=== PATIENT | male | born 1930 | race Hispanic/Latino ===

== ENCOUNTER 2016-11-01 15:25 | Emergency (ER) | payer MEDICARE, OTHER ==
[2016-11-01 17:06] LABS: Basophils % (Auto) 0.5 % (0.0-1.8); Eosinophils % (Auto) 2.1 % (0.0-4.3); Hematocrit 37.7 % (35.5-45.6); Hemoglobin 12.7 gm/dl (11.8-15.2); Mean Corpuscular HGB Conc 34 % (32-34); Mean Corpuscular Hemoglobin 31 pg (28-32); Mean Corpuscular Volume 92 fl (84-94); Platelet Count 193 K/mm3 (140-440); Red Blood Count 4.09 M/mm3 (3.65-5.03); Red Cell Distribution Width 13.7 % (13.2-15.2); White Blood Count 9.1 K/mm3 (4.5-11.0)
[2016-11-01 17:25] LABS: Anion Gap 19 mmol/L; BUN/Creatinine Ratio 23.33; Blood Urea Nitrogen 28 mg/dL (9-20); Calcium 9.3 mg/dL (8.4-10.2); Carbon Dioxide 27 mmol/L (22-30); Chloride 97.6 mmol/L (98-107); Glucose 122 mg/dL (75-100); Potassium 4.2 mmol/L (3.6-5.0); Sodium 139 mmol/L (137-145)
--- NOTE | 2016-11-01 18:58 | Emergency Department Report ---
ED Dizziness HPI - General Chief Complaint: Syncope Stated Complaint: SYNCOPE Time Seen by Provider: 11/01/16 16:16 Source: patient, EMS Mode of arrival: Stretcher Limitations: No Limitations - History of Present Illness Initial Comments: 86-year-old male presents to the emergency department via EMS after a near syncopal episode. Patient states he was at [facility] when he began feeling lightheaded. Patient states he was able to sit down. He did not fall. He also denies losing consciousness. He denies palpitations or chest pain prior to this incident. At this time, the patient has no complaints. Patient states he would like to go home. Complaint: near syncope -: Sudden, This afternoon Timing: sudden onset Description: lightheadedness, near-syncope History of Same: Yes History of Trauma: No Severity: moderate Improves With: rest Worsens With: nothing Associated Symptoms: denies other symptoms - Related Data Allergies Allergy/AdvReac Type Severity Reaction Status Date / Time No Known Allergies Allergy Unverified 07/14/16 10:38 ED Review of Systems ROS: Stated complaint: SYNCOPE Other details as noted in HPI Comment: All other systems reviewed and negative Cardiovascular: as per HPI, syncope (near syncope, no loss of consciousness) ED Past Medical Hx - Past Medical History Previous Medical History?: Yes Hx Hypertension: Yes Hx CVA: Yes - Surgical History Past Surgical History?: Yes Hx Coronary Stent: Yes (6) - Family History Family history: no significant - Social History Smoking Status: Former Smoker Substance Use Type: None ED Physical Exam - General Limitations: No Limitations General appearance: alert, in no apparent distress - Head Head exam: Present: atraumatic, normocephalic - Eye Eye exam: Present: normal appearance, PERRL, EOMI - ENT ENT exam: Present: normal exam, normal orophraynx, mucous membranes moist - Neck Neck exam: Present: normal inspection, full ROM. Absent: tenderness - Respiratory Respiratory exam: Present: normal lung sounds bilaterally. Absent: respiratory distress - Cardiovascular Cardiovascular Exam: Present: regular rate, normal rhythm, normal heart sounds - GI/Abdominal GI/Abdominal exam: Present: soft, normal bowel sounds. Absent: distended, tenderness - Extremities Exam Extremities exam: Present: normal inspection, full ROM. Absent: tenderness - Back Exam Back exam: Present: normal inspection, full ROM. Absent: tenderness - Neurological Exam Neurological exam: Present: alert, oriented X3. Absent: motor sensory deficit - Skin Skin exam: Present: warm, dry, intact ED Course Vital Signs 11/01/16 11/01/16 11/01/16 15:45 15:48 15:50 Temperature 98.1 F Pulse Rate 57 L 75 Respiratory 18 15 Rate Blood Pressure 146/67 O2 Sat by Pulse 99 99 98 Oximetry 11/01/16 11/01/16 11/01/16 16:00 16:10 16:20 Temperature Pulse Rate 50 L 55 L 55 L Respiratory 8 L 15 10 L Rate Blood Pressure 146/67 131/60 132/61 O2 Sat by Pulse 97 99 Oximetry 11/01/16 11/01/16 11/01/16 16:30 16:40 16:50 Temperature Pulse Rate 55 L 66 60 Respiratory 13 10 L 13 Rate Blood Pressure 132/61 137/67 156/73 O2 Sat by Pulse 98 98 99 Oximetry 11/01/16 11/01/16 11/01/16 17:00 17:10 17:20 Temperature Pulse Rate 69 65 66 Respiratory 14 9 L 11 L Rate Blood Pressure 156/73 159/70 153/65 O2 Sat by Pulse 97 97 97 Oximetry 11/01/16 11/01/16 11/01/16 17:30 17:42 17:48 Temperature Pulse Rate 64 71 Respiratory 18 20 14 Rate Blood Pressure 153/65 156/73 O2 Sat by Pulse 94 99 98 Oximetry 11/01/16 11/01/16 11/01/16 17:50 18:00 18:10 Temperature Pulse Rate 68 65 63 Respiratory 12 16 11 L Rate Blood Pressure 156/73 139/61 139/61 O2 Sat by Pulse 97 97 97 Oximetry 11/01/16 18:20 Temperature Pulse Rate 76 Respiratory 15 Rate Blood Pressure 140/59 O2 Sat by Pulse 96 Oximetry ED Medical Decision Making - Lab Data Result diagrams: 11/01/16 16:46 11/01/16 16:46 - EKG Data -: EKG Interpreted by Me EKG shows normal: sinus rhythm, axis, intervals, QRS complexes, ST-T waves Rate: normal - EKG Data When compared to previous EKG there are: previous EKG unavailable Interpretation: normal EKG - Medical Decision Making Laboratory results reviewed and discussed with the patient and family. Patient is adamant about going home at this time. Risks of leaving without further cardiac evaluation were discussed with the patient. 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 Patient will be discharged home at this time. - Differential Diagnosis near syncope, arrhythmia, dehydration Critical care attestation.: If time is entered above; I have spent that time in minutes in the direct care of this critically ill patient, excluding procedure time. ED Disposition Clinical Impression: Near syncope Disposition: DISCHARGED TO HOME OR SELFCARE Is pt being admited?: No Condition: Stable Instructions: Near Syncope (ED) Referrals: PRIMARY CARE, [Primary Care Provider] - 3-5 Days Time of Disposition: 18:58
[2016-11-01 20:02] VITALS: BP 152/64
== END 2016-11-01 19:10 | disposition home or self-care (01) ==
LOC: ED 15:25
DX: R55 Syncope and collapse (principal); I10 Essential (primary) hypertension; Z86.73 Personal history of transient ischemic attack (TIA), and cerebral infarction without residual deficits; Z87.891 Personal history of nicotine dependence; Z95.818 Presence of other cardiac implants and grafts
CPT/HCPCS: 36415; 80048; 84484; 85025; 99283

== ENCOUNTER 2017-03-18 21:15 | Emergency (ER) | payer MEDICARE, OTHER ==
--- NOTE | 2017-03-18 22:56 | Emergency Department Report ---
ED General Adult HPI - General Chief complaint: Abdominal Pain Stated complaint: ABDOMINAL PAIN Time Seen by Provider: 03/18/17 22:30 Source: patient, family, EMS (ems notes not available at time of chart dictation), RN notes reviewed, old records reviewed Mode of arrival: Ambulatory Limitations: No Limitations - History of Present Illness Initial comments: This is an 87-year-old male. He was previously unknown to me. Past medical history includes stroke, hypertension, heart disease with stent, reports a distant history of appendectomy. Also reports a past medical history of kidney stones. The patient presents to the ER with resolved right lower quadrant and right flank pain. He thinks that he had a kidney stone. He denies headache, neck pain, chest pain, shortness of breath, testicular pain, irritative and obstructive urinary symptoms. He has no pain at this time. He declines pain medication. He declines nausea medication. -: Gradual Location: abdomen Radiation: non-radiation Severity scale (0 -10): 0 Quality: aching Consistency: now resolved Improves with: none Worsens with: none Associated Symptoms: denies other symptoms - Related Data Previous Rx's Medication Instructions Recorded Last Taken Type Dicyclomine [Bentyl] 10 mg PO QID PRN #20 capsule 03/19/17 Unknown Rx Ondansetron [Zofran Odt] 4 mg PO QID PRN #20 tab.rapdis 03/19/17 Unknown Rx Allergies Allergy/AdvReac Type Severity Reaction Status Date / Time No Known Allergies Allergy Unverified 07/14/16 10:38 ED Review of Systems ROS: Stated complaint: ABDOMINAL PAIN Other details as noted in HPI Constitutional: denies: fever, malaise Eyes: denies: vision change ENT: denies: throat pain, epistaxis Respiratory: denies: cough Cardiovascular: denies: chest pain Gastrointestinal: abdominal pain Genitourinary: denies: urgency, dysuria, testicular pain Musculoskeletal: denies: back pain Skin: denies: lesions Neurological: denies: headache ED Past Medical Hx - Past Medical History Previous Medical History?: Yes Hx Hypertension: Yes Hx CVA: Yes - Surgical History Past Surgical History?: Yes Hx Coronary Stent: Yes (6) - Social History Smoking Status: Former Smoker Substance Use Type: None - Medications Home Medications: Home Medications Medication Instructions Recorded Confirmed Last Taken Type Dicyclomine [Bentyl] 10 mg PO QID PRN #20 capsule 03/19/17 Unknown Rx Ondansetron [Zofran Odt] 4 mg PO QID PRN #20 tab.rapdis 03/19/17 Unknown Rx ED Physical Exam - General Limitations: No Limitations General appearance: alert, in no apparent distress - Head Head exam: Present: atraumatic, normocephalic - Eye Eye exam: Present: normal appearance, EOMI - ENT ENT exam: Present: normal exam, normal orophraynx, mucous membranes moist, normal external ear exam - Neck Neck exam: Present: normal inspection, full ROM. Absent: tenderness, meningismus - Respiratory Respiratory exam: Present: normal lung sounds bilaterally. Absent: respiratory distress, wheezes, rales, rhonchi, stridor, chest wall tenderness - Cardiovascular Cardiovascular Exam: Present: regular rate, normal rhythm, normal heart sounds. Absent: bradycardia, tachycardia, irregular rhythm, systolic murmur, diastolic murmur, rubs, gallop - GI/Abdominal GI/Abdominal exam: Present: soft, normal bowel sounds. Absent: distended, tenderness, guarding, rebound, rigid, pulsatile mass - Rectal Rectal exam: Present: deferred - Extremities Exam Extremities exam: Present: normal inspection, full ROM, normal capillary refill. Absent: joint swelling, calf tenderness - Back Exam Back exam: Present: normal inspection, full ROM. Absent: tenderness, CVA tenderness (R), CVA tenderness (L), muscle spasm, paraspinal tenderness, vertebral tenderness - Neurological Exam Neurological exam: Present: alert, oriented X3, other (Extraocular movements intact. Tongue midline. No facial droop. Facial sensation intact to light touch in the V1, V2, V3 distribution bilaterally. 5 and 5 strength in 4 extremities.. Sensation is intact to light touch in 4 extremities.). Absent: motor sensory deficit - Psychiatric Psychiatric exam: Present: normal affect, normal mood - Skin Skin exam: Present: warm, dry, intact, normal color. Absent: rash ED Course Vital Signs 03/18/17 03/18/17 03/18/17 21:34 21:48 21:51 Temperature 98.3 F Pulse Rate 81 82 76 Respiratory 18 12 14 Rate Blood Pressure 160/92 Blood Pressure 138/83 [Right] O2 Sat by Pulse 99 98 99 Oximetry 03/18/17 03/18/17 03/18/17 22:01 22:11 22:21 Temperature Pulse Rate 77 40 L 41 L Respiratory 13 17 13 Rate Blood Pressure 155/85 155/85 155/85 Blood Pressure [Right] O2 Sat by Pulse 98 97 98 Oximetry 03/18/17 03/18/17 03/18/17 22:31 22:41 22:51 Temperature Pulse Rate 79 76 81 Respiratory 14 10 L 13 Rate Blood Pressure 166/90 166/90 166/90 Blood Pressure [Right] O2 Sat by Pulse 99 98 98 Oximetry 03/18/17 03/18/17 03/18/17 23:01 23:11 23:21 Temperature Pulse Rate 79 86 Respiratory 18 11 L 16 Rate Blood Pressure 166/90 166/90 166/90 Blood Pressure [Right] O2 Sat by Pulse 95 97 97 Oximetry 03/18/17 23:39 Temperature Pulse Rate Respiratory 18 Rate Blood Pressure Blood Pressure [Right] O2 Sat by Pulse 98 Oximetry - Reevaluation(s) Reevaluation #1: 03/19/17 00:11 Differential diagnosis: Constipation, renal colic, urinary tract infection, colitis, diverticulitis, perforated viscus, AAA Assessment and plan: 87-year-old male with resolved abdominal pain. He is afebrile, with reassuring vital signs, and clinically appears well. He declines interventions at this time. Laboratory studies, CT scan of the abdomen and pelvis, urinalysis pending. Reevaluation #2: 03/19/17 00:44 Patient is tolerating liquid feeds. No AAA is identified. No obstruction is identified. No renal calculus is identified. Hydroureter on the right side is identified. Patient is suitable to follow up with outpatient primary care doctor. Return precautions are reviewed. Reevaluation #3: 03/19/17 00:49 The patient is going to follow up with his primary care doctor next week. He has been given copies of his laboratory studies and CT scan report to show his primary care doctor. ED Medical Decision Making - Lab Data Result diagrams: 03/18/17 23:07 03/18/17 23:07 Vital Signs 03/18/17 03/18/17 03/18/17 21:34 21:48 21:51 Temperature 98.3 F Pulse Rate 81 82 76 Respiratory 18 12 14 Rate Blood Pressure 160/92 Blood Pressure 138/83 [Right] O2 Sat by Pulse 99 98 99 Oximetry 03/18/17 03/18/17 03/18/17 22:01 22:11 22:21 Temperature Pulse Rate 77 40 L 41 L Respiratory 13 17 13 Rate Blood Pressure 155/85 155/85 155/85 Blood Pressure [Right] O2 Sat by Pulse 98 97 98 Oximetry 03/18/17 03/18/17 03/18/17 22:31 22:41 22:51 Temperature Pulse Rate 79 76 81 Respiratory 14 10 L 13 Rate Blood Pressure 166/90 166/90 166/90 Blood Pressure [Right] O2 Sat by Pulse 99 98 98 Oximetry 03/18/17 03/18/17 03/18/17 23:01 23:11 23:21 Temperature Pulse Rate 79 86 Respiratory 18 11 L 16 Rate Blood Pressure 166/90 166/90 166/90 Blood Pressure [Right] O2 Sat by Pulse 95 97 97 Oximetry 03/18/17 23:39 Temperature Pulse Rate Respiratory 18 Rate Blood Pressure Blood Pressure [Right] O2 Sat by Pulse 98 Oximetry Labs 03/18/17 03/18/17 23:07 23:07 WBC 8.9 RBC 4.11 Hgb 13.1 Hct 37.9 MCV 92 MCH 32 MCHC 35 H RDW 13.6 Plt Count 158 Sodium 128 L Potassium 4.2 Chloride 87.4 L Carbon Dioxide 26 Anion Gap 19 BUN 18 Creatinine 0.9 Estimated GFR > 60 BUN/Creatinine Ratio 20.00 Glucose 120 H Calcium 9.2 - Radiology Data Radiology results: report reviewed Critical care attestation.: If time is entered above; I have spent that time in minutes in the direct care of this critically ill patient, excluding procedure time. ED Disposition Clinical Impression: Right sided abdominal pain Disposition: DC-01 TO HOME OR SELFCARE Is pt being admited?: No Does the pt Need Aspirin: No Condition: Stable Instructions: Abdominal Pain (ED) Additional Instructions: Take the pain medication, nausea medication as directed. Laboratory studies demonstrated decreased sodium level, it should be followed up by a primary care doctor within the next [address] scan demonstrated a slightly enlarged ureter, especially follow-up by her primary care doctor or urology specialist in the next month. CT scan also demonstrated a number of incidental findings, which should be followed up by your primary care doctor. Have your primary care doctor contact the medical records department to obtain the CT scan results. Return to the ER right away with new pain, worsened pain, migration of pain, fevers, chills, confusion, intractable nausea or vomiting, inability to tolerate liquid feeds. Dr. Mueller is a local urology specialist. Prescriptions: Dicyclomine [Bentyl] 10 mg PO QID PRN #20 capsule PRN Reason: Pain Ondansetron [Zofran Odt] 4 mg PO QID PRN #20 tab.rapdis PRN Reason: Nausea Referrals: PRIMARY CARE, [Primary Care Provider] - 3-5 Days SILVINA MUELLER MD [Staff Physician] - 3-5 Days
[2017-03-18 23:40] LABS: Anion Gap 19 mmol/L; Blood Urea Nitrogen 18 mg/dL (9-20); Calcium 9.2 mg/dL (8.4-10.2); Carbon Dioxide 26 mmol/L (22-30); Chloride 87.4 mmol/L (98-107); Glucose 120 mg/dL (75-100); Potassium 4.2 mmol/L (3.6-5.0); Sodium 128 mmol/L (137-145)
[2017-03-18 23:44] LABS: Hematocrit 37.9 % (35.5-45.6); Hemoglobin 13.1 gm/dl (11.8-15.2); Mean Corpuscular HGB Conc 35 % (32-34); Mean Corpuscular Hemoglobin 32 pg (28-32); Mean Corpuscular Volume 92 fl (84-94); Platelet Count 158 K/mm3 (140-440); Red Blood Count 4.11 M/mm3 (3.65-5.03); Red Cell Distribution Width 13.6 % (13.2-15.2); White Blood Count 8.9 K/mm3 (4.5-11.0)
[2017-03-19 00:24] LABS: Bilirubin,Urine NEG (Negative); Blood,Urine NEG (Negative); Ketones,Urine TR mg/dL (Negative); Leukocyte Esterase,Urine NEG (Negative); Nitrite,Urine NEG (Negative); Protein,Urine <15 mg/dL mg/dL (Negative); RBC,Urine < 1.0 /HPF (0.0-6.0); Urobilinogen,Urine < 2.0 mg/dL (<2.0); WBC,Urine < 1.0 /HPF (0.0-6.0)
--- NOTE | 2017-03-19 00:42 | Cat Scan Report ---
FINAL REPORT PROCEDURE: CT ABDOMEN PELVIS WO CON TECHNIQUE: Computerized axial tomography of the abdomen and pelvis was performed without intravenous contrast. This study is performed without intravascular contrast material and its sensitivity for abdominal and pelvic pathology, including neoplasms, inflammation, abscess, free fluid, thrombosis, arterial dissection and infarction, is reduced compared with a contrast enhanced study. HISTORY: abd pain COMPARISON: No prior studies are available for comparison. 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 Liver: Normal size and attenuation. Spleen: Normal size and attenuation. Gallbladder and biliary system: Normal. Pancreas: Normal. Adrenals: Normal. 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 There is moderate hydronephrosis and hydroureter on the right. There are no kidney or ureteral stones. There are intrarenal vascular calcifications.. GI tract: There is no bowel obstruction, colitis or enteritis. There is a large amount of stool in the colon. The stomach is distended.. Lymph nodes and mesentery: Normal. Vasculature: There is calcified plaque in the abdominal aorta and branches. There is no aneurysm.. Bladder: Bladder is distended.. Reproductive organs: Prostate gland is enlarged.. Peritoneum: There is no ascites, free air, abscess or adenopathy.. Musculoskeletal structures: No significant abnormality. Other: None. 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 There is moderate hydronephrosis and hydroureter on the right. There are no kidney or ureteral stones. There are intrarenal vascular calcifications.. There is no bowel obstruction, colitis or enteritis. There is a large amount of stool in the colon. The stomach is distended.. Prostate gland is enlarged.. There is no ascites, free air, abscess or adenopathy.. .
[2017-03-19 02:01] VITALS: BP 169/75
== END 2017-03-19 01:59 | disposition home or self-care (01) ==
LOC: ED 21:15
DX: R10.31 Right lower quadrant pain (principal); I10 Essential (primary) hypertension; Z86.73 Personal history of transient ischemic attack (TIA), and cerebral infarction without residual deficits; Z87.891 Personal history of nicotine dependence; Z95.818 Presence of other cardiac implants and grafts
CPT/HCPCS: 36415; 74176; 80048; 81001; 85027; 87086

== ENCOUNTER 2017-04-12 10:00 | Outpatient (CLI) | payer MEDICARE, OTHER ==
--- NOTE | 2017-04-12 12:08 | Ultrasound Report ---
ULTRASOUND RENAL RIGHT HISTORY: Hydronephrosis FINDINGS: History of left nephrectomy is given. Transabdominal ultrasound imaging of the right kidney was performed which measures 15 x 8 x 7 cm. No evidence for hydronephrosis on ultrasound. No cystic disease, mass or shadowing calculus. Renal vascular calcifications are noted. The echotexture of the right kidney is within normal limits. The bladder is empty. IMPRESSION: Essentially unremarkable sonogram of the right kidney. No evidence for hydronephrosis.
== END 2017-04-12 10:01 | disposition home or self-care (01) ==
LOC: US 10:00
PROVIDERS: ATTEND Urology
DX: N28.89 Other specified disorders of kidney and ureter (principal); I10 Essential (primary) hypertension; Z90.5 Acquired absence of kidney; Z87.891 Personal history of nicotine dependence
CPT/HCPCS: 76775

== ENCOUNTER 2017-09-25 10:02 | Outpatient (CLI) | payer MEDICARE, OTHER ==
--- NOTE | 2017-09-25 11:47 | Cat Scan Report ---
CT ABDOMEN PELVIS WITHOUT CONTRAST: HISTORY: Hydronephrosis. COMPARISON: 03/19/17. TECHNIQUE: Helical CT in 1.25mm intervals without IV contrast. Sagittal and coronal reconstructions. FINDINGS: Lung bases: Adequately aerated. Heart size is borderline. Liver: Normal. Biliary system: Normal. Pancreas: Normal. Spleen: Normal. Kidneys/ureters/bladder: The left kidney is severely atrophic measuring 2-3 cm in length. The right kidney is normal size and position. Right hydronephrosis has resolved since the previous exam renal vascular calcifications are identified. There also appear to be a few punctate calyceal stones in the superior pole of the right kidney. The right ureter is normal course and caliber. The bladder is grossly normal. The prostate gland is moderately enlarged measuring 5.6 cm in diameter. Adrenal glands: Normal. Aorta: Diffuse calcifications. No aneurysm or signs of dissection. Intestines: There is moderate fecal retention. No evidence for bowel obstruction or focal inflammation. Appendix: Not confidently identified, correlate with surgical history. Pelvic viscera: Normal. Ascites: None. Adenopathy: None. Musculoskeletal: Mild osteopenia with diffuse degenerative changes. No acute fracture is appreciated. Chronic right L2 and L3 comment first process fractures are noted. IMPRESSION: No evidence for hydronephrosis. There are few punctate calyceal stones in the superior right kidney. The left kidney is severely atrophic. Enlarged prostate gland. 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 Fecal retention. Osteopenia and degenerative changes.
== END 2017-09-25 10:03 | disposition home or self-care (01) ==
LOC: CT 10:02
PROVIDERS: ATTEND Urology
DX: N20.0 Calculus of kidney (principal); N40.0 Benign prostatic hyperplasia without lower urinary tract symptoms; N26.1 Atrophy of kidney (terminal); S32.039A Unspecified fracture of third lumbar vertebra, initial encounter for closed fracture; S32.029A Unspecified fracture of second lumbar vertebra, initial encounter for closed fracture; I70.0 Atherosclerosis of aorta; K59.00 Constipation, unspecified; M85.88 Other specified disorders of bone density and structure, other site; M47.899 Other spondylosis, site unspecified; X58.XXXA Exposure to other specified factors, initial encounter; Y93.89 Activity, other specified; Y92.89 Other specified places as the place of occurrence of the external cause; Y99.8 Other external cause status
CPT/HCPCS: 74176

== ENCOUNTER 2018-10-29 10:46 | Outpatient (CLI) | payer MEDICARE, OTHER ==
--- NOTE | 2018-10-29 13:29 | XRay Report ---
LEFT HIP, 2 views: History: Pain The bony architecture is intact without evidence of fracture or dislocation. Minimal osteoarthritic changes are identified. No significant soft tissue abnormality is seen. IMPRESSION: Minimal osteoarthritis.
--- NOTE | 2018-10-29 17:19 | XRay Report ---
FINAL REPORT EXAM: XR SPINE LUMBOSACRAL 4+V HISTORY: PAIN in the low back TECHNIQUE: AP, lateral, bilateral oblique, and coned-down views of the lumbar spine PRIORS: CT a/P 03/18/2017 FINDINGS: The vertebral body heights and disc spaces are well maintained. Large osteophytes anteriorly in the l umbar spine are noted. Facet joint degenerative changes at L4 through S1 are noted. The alignment is normal. No evidence for spondylolysis or spondylolisthesis is seen. Pedicles are intact bilaterally a t all levels. The paraspinal soft tissues demonstrate calcification of aorta. IMPRESSION: No acute abnormality of the lumbar spine. No significant change. Degenerative changes as noted.
== END 2018-10-29 10:47 | disposition home or self-care (01) ==
LOC: XRAY 10:46
PROVIDERS: ATTEND Internal Medicine
DX: M47.817 Spondylosis without myelopathy or radiculopathy, lumbosacral region (principal); M16.12 Unilateral primary osteoarthritis, left hip; I10 Essential (primary) hypertension
CPT/HCPCS: 72110

== ENCOUNTER 2019-03-31 15:28 | Inpatient (IN) | payer MEDICARE, OTHER ==
--- NOTE | 2019-03-31 15:38 | Emergency Department Report ---
Blank Doc - Documentation Documentation: This is a 89-year-old male that presents with low H/H and was sent by PCP. This initial assessment/diagnostic orders/clinical plan/treatment(s) is/are subject to change based on patient's health status, clinical progression and re- assessment by fellow clinical providers in the ED. Further treatment and workup at subsequent clinical providers discretion. Patient/guardians urged not to elope from the ED as their condition may be serious if not clinically assessed and managed. Initial orders include: 1- Patient sent to MAIN for further evaluation and treatment 2- labs
[2019-03-31 16:02] LABS: Basophils % (Auto) 0.8 % (0.0-1.8); Eosinophils # (Auto) 0.1 K/mm3 (0.0-0.4); Eosinophils % (Auto) 2.7 % (0.0-4.3); Hematocrit 21.2 % (35.5-45.6); Hemoglobin 6.8 gm/dl (11.8-15.2); Lymphocytes # (Auto) 1.2 K/mm3 (1.2-5.4); Lymphocytes % (Auto) 26.5 % (13.4-35.0); Mean Corpuscular HGB Conc 32 % (32-34); Mean Corpuscular Volume 86 fl (84-94); Monocytes # (Auto) 0.5 K/mm3 (0.0-0.8); Monocytes % (Auto) 11.6 % (0.0-7.3); Platelet Count 236 K/mm3 (140-440); Red Blood Count 2.47 M/mm3 (3.65-5.03)
[2019-03-31 16:03] LABS: Red Cell Distribution Width 20.6 % (13.2-15.2)
[2019-03-31 16:11] LABS: INR 2.33 (0.87-1.13)
[2019-03-31 16:12] LABS: Partial Thromboplastin Time 45.6 Sec. (24.2-36.6)
[2019-03-31 16:21] LABS: BUN/Creatinine Ratio 13; Blood Urea Nitrogen 14 mg/dL (9-20); Calcium 8.9 mg/dL (8.4-10.2); Hemolysis Index 3
[2019-03-31] MEDS ORDERED: NACL 0.9% 500 ML 500 ML IV ONE ×2 (16:54→18:00)
--- NOTE | 2019-03-31 17:00 | Emergency Department Report ---
ED Recheck HPI - General Chief Complaint: Recheck/Abnormal Lab/Rx Stated Complaint: LOW HEMOGLOBIN Time Seen by Provider: 03/31/19 16:50 Source: patient Mode of arrival: Ambulatory Limitations: No Limitations - History of Present Illness Initial Comments: Patient is an 89-year-old male presents emergency room with complaints of low hemoglobin. Patient states his primary care, Dr. Us sent him here for evaluation. Patient denies pain. Patient denies any symptoms except for melena. Patient states 2 days ago his stool turned black. Patient denies abdominal pain. Patient denies fever. He denies bright red blood per rectum. Patient states she is on blood thinner. Patient past medical history review, patient has a history of CAD with 6 cardiac stents, A. fib, hyperlipidemia. MD Complaint: abnormal lab -: Sudden Returns Today for: CBOAL Symptoms Since Prior Visit: no new symptoms Context: called for abnorm lab res Associated Symptoms: none - Related Data Previous Rx's Medication Instructions Recorded Last Taken Type Dicyclomine [Bentyl] 10 mg PO QID PRN #20 capsule 03/19/17 Unknown Rx Ondansetron [Zofran Odt] 4 mg PO QID PRN #20 tab.rapdis 03/19/17 Unknown Rx Allergies Allergy/AdvReac Type Severity Reaction Status Date / Time No Known Allergies Allergy Unverified 07/14/16 10:38 ED Review of Systems ROS: Stated complaint: LOW HEMOGLOBIN Other details as noted in HPI Constitutional: denies: chills, fever Eyes: denies: eye pain, eye discharge, vision change ENT: denies: ear pain, throat pain Respiratory: denies: cough, shortness of breath, wheezing Cardiovascular: denies: chest pain, palpitations Endocrine: no symptoms reported Gastrointestinal: melena. denies: abdominal pain, nausea, diarrhea Genitourinary: denies: urgency, dysuria Musculoskeletal: denies: back pain, joint swelling, arthralgia Skin: denies: rash, lesions Neurological: denies: headache, weakness, paresthesias Psychiatric: denies: anxiety, depression Hematological/Lymphatic: denies: easy bleeding, easy bruising ED Past Medical Hx - Past Medical History Previous Medical History?: Yes Hx Hypertension: Yes Hx CVA: Yes Additional medical history: elevated cholesterol, bilateral hearing aids, AFIB - Surgical History Past Surgical History?: Yes Hx Coronary Stent: Yes (6) Additional Surgical History: bilateral eye implants - Family History Family history: no significant - Social History Smoking Status: Never Smoker Substance Use Type: None - Medications Home Medications: Home Medications Medication Instructions Recorded Confirmed Last Taken Type Dicyclomine [Bentyl] 10 mg PO QID PRN #20 capsule 03/19/17 Unknown Rx Ondansetron [Zofran Odt] 4 mg PO QID PRN #20 tab.rapdis 03/19/17 Unknown Rx ED Physical Exam - General Limitations: No Limitations General appearance: alert, in no apparent distress - Head Head exam: Present: atraumatic, normocephalic - Eye Eye exam: Present: normal appearance - ENT ENT exam: Present: mucous membranes moist - Neck Neck exam: Present: normal inspection - Respiratory Respiratory exam: Present: normal lung sounds bilaterally. Absent: respiratory distress - Cardiovascular Cardiovascular Exam: Present: regular rate, normal rhythm. Absent: systolic murmur, diastolic murmur, rubs, gallop - GI/Abdominal GI/Abdominal exam: Present: soft, normal bowel sounds - Rectal Rectal exam: Present: deferred - Extremities Exam Extremities exam: Present: normal inspection - Back Exam Back exam: Present: normal inspection - Neurological Exam Neurological exam: Present: alert, oriented X3 - Psychiatric Psychiatric exam: Present: normal affect, normal mood - Skin Skin exam: Present: warm, dry, intact, normal color. Absent: rash ED Course Vital Signs 03/31/19 03/31/19 03/31/19 15:36 17:00 18:18 Temperature 98.4 F Pulse Rate 73 64 Respiratory 18 15 15 Rate Blood Pressure 127/58 Blood Pressure 152/63 [Left] O2 Sat by Pulse 100 96 96 Oximetry - Reevaluation(s) Reevaluation #1: I discussed all results with patient. I discussed plan of care with patient. Patient agrees with plan of care and admission. Patient will be transfused one unit and admitted to the hospitalist service. 03/31/19 17:25 - Consultations Consultation #1: GI paged 03/31/19 17:07 Discussed case with GI, Dr Gutiérrez and GI recommends admission and they will see him in the morning. 03/31/19 17:28 Consultation #2: Hospitalist consult for admission. Hospitalist admit patient and assume care of patient. 03/31/19 17:20 ED Recheck MDM - Core Measures AMI Core Measures Followed: Yes - Differential Diagnosis gi bleed. anemia. - Medical Decision Making Patient is an 89-year-old male presents emergency room with complaints of low hemoglobin. Patient found to have an hemoglobin at 6.8. Patient will be type and crossed for 1 unit. Patient has history of CAD with stents. Patient admitted to the hospitalist service. Critical Care Time: Yes Critical care attestation.: If time is entered above; I have spent that time in minutes in the direct care of this critically ill patient, excluding procedure time. Critical Care Time: 35 minutes ED Disposition Clinical Impression: Anemia Qualifiers: Anemia type: unspecified type Qualified Code(s): D64.9 - Anemia, unspecified GI bleed Qualifiers: GI bleed type/associated pathology: melena Qualified Code(s): K92.1 - Melena CAD (coronary artery disease) Qualifiers: Coronary Disease-Associated Artery/Lesion type: unspecified vessel or lesion type [place] vs. transplanted heart: [place] heart Associated angina: without angina Qualified Code(s): I25.10 - Atherosclerotic heart disease of [place] coronary artery without angina pectoris Disposition: DC-09 OP ADMIT IP TO THIS HOSP Is pt being admited?: Yes Does the pt Need Aspirin: No Condition: Critical Time of Disposition: 17:45
--- NOTE | 2019-03-31 17:21 | History and Physical Report ---
History of Present Illness Chief complaint: I had two dark stools History of present illness: 89 YO Male with HTN, CVA, CAD S/P Stent Placement, HLD, Atrial Fib on Therapeutic Anticoagulation with Xarelto, Vascular Dementia presents to ED for evaluation. Pt states that he has experienced two episodes of dark and tarry stools over the past 2 days. Pt acknowledges feeling somewhat weak. Pt and family reports skin pallor over the past several weeks. Pt was seen by his primary care physician, Dr. Us and was found to have a low hemoglobin. Pt instructed to seek further care at [facility]. PT transported to [facility] via private vehicle. Pt seen and evaluated in ED and found to be hemoccult positive as well as reported symptoms consistent with GI Bleed complicated by symptomatic anemia. PT denies fever, chills, CP, Palpitations, NVD, Trauma, Productive cough, skin rash, ingestion of food/water from new or different sources. Pt initiated on GI bleed Protocol as well as PPI therapy and admitted to IMCU. No prior admission for review. All listed medication reconciled at time of admission. Past History Past Medical History: atrial fib, hypertension, hyperlipidemia, stroke, other (Vascular dementia) Past Surgical History: Other (Cardiac stent) Social history: , lives with family. denies: smoking, alcohol abuse, pr escription drug abuse Family history: no significant family history (reviewed), other (reviewed) Medications and Allergies Allergies Allergy/AdvReac Type Severity Reaction Status Date / Time No Known Allergies Allergy Unverified 07/14/16 10:38 Home Medications Medication Instructions Recorded Confirmed Last Taken Type Dicyclomine [Bentyl] 10 mg PO QID PRN #20 capsule 03/19/17 Unknown Rx Ondansetron [Zofran Odt] 4 mg PO QID PRN #20 tab.rapdis 03/19/17 Unknown Rx Review of Systems Constitutional: weakness, no weight loss, no weight gain, no fever, no chills Ears, nose, mouth and throat: no ear pain, no ear discharge, no tinnitis, no decreased hearing, no nose pain, no nasal discharge Cardiovascular: no orthopnea, no palpitations, no rapid/irregular heart beat, no syncope, no lightheadedness Respiratory: no cough, no cough with sputum, no excessive sputum, no shortness of breath Gastrointestinal: melena, no abdominal pain, no vomiting, no diarrhea, no change in bowel habits Genitourinary Male: no dysuria, no hematuria, no flank pain, no discharge, no urinary frequency, no urinary hesitancy, no nocturia Rectal: bleeding, no pain, no incontinence Musculoskeletal: no neck stiffness, no neck pain Integumentary: no rash, no pruritis, no wounds Neurological: no head injury, no transient paralysis, no paralysis, no parathesias, no tingling, no tremors, no ataxia Psychiatric: no anxiety, no memory loss, no change in sleep habits, no sleep disturbances, no insomnia, no change in libido Endocrine: no cold intolerance, no heat intolerance, no polyphagia, no excessive thirst, no polydipsia, no nocturia Hematologic/Lymphatic: no easy bruising Allergic/Immunologic: no urticaria, no allergic rhinitis Exam - Constitutional Vitals: Temp Pulse Resp BP Pulse Ox 98.4 F 73 18 127/58 100 03/31/19 15:36 03/31/19 15:36 03/31/19 15:36 03/31/19 15:36 03/31/19 15:36 General appearance: Present: mild distress - EENT Eyes: Present: PERRL (conjunctival pallor) ENT: clear oral mucosa, hearing decreased - Neck Neck: Present: supple, normal ROM - Respiratory Respiratory effort: normal Respiratory: bilateral: CTA - Cardiovascular Heart Sounds: Present: S1 & S2. Absent: rub, click - Extremities Extremities: pulses symmetrical, No edema Peripheral Pulses: within normal limits - Abdominal General gastrointestinal: Present: soft, non-tender, non-distended, normal bowel sounds Male genitourinary: Present: normal - Integumentary Integumentary: Present: clear, warm, dry - Musculoskeletal Musculoskeletal: generalized weakness - Psychiatric Psychiatric: appropriate mood/affect, intact judgment & insight - Neurologic Neurologic: CNII-XII intact, moves all extremities Results - Labs CBC & Chem 7: 03/31/19 15:45 03/31/19 15:45 Labs: Abnormal lab results 03/31/19 03/31/19 03/31/19 Range/Units 15:45 15:45 15:45 WBC 4.4 L (4.5-11.0) K/mm3 RBC 2.47 L (3.65-5.03) M/mm3 Hgb 6.8 L (11.8-15.2) gm/dl Hct 21.2 L (35.5-45.6) % RDW 20.6 H (13.2-15.2) % [place] % (Auto) 11.6 H (0.0-7.3) % PT (12.2-14.9) Sec. INR (0.87-1.13) APTT (24.2-36.6) Sec. Glucose 116 H (75-100) mg/dL Crossmatch See Detail 03/31/19 Range/Units 15:45 WBC (4.5-11.0) K/mm3 RBC (3.65-5.03) M/mm3 Hgb (11.8-15.2) gm/dl Hct (35.5-45.6) % RDW (13.2-15.2) % [place] % (Auto) (0.0-7.3) % PT 25.1 H (12.2-14.9) Sec. INR 2.33 H (0.87-1.13) APTT 45.6 H (24.2-36.6) Sec. Glucose (75-100) mg/dL Crossmatch Assessment and Plan - Patient Problems (1) GI bleed Current Visit: Yes Status: Acute Qualifiers: GI bleed type/associated pathology: melena Qualified Code(s): K92.1 - Melena Plan to address problem: Admit to IMCU: PRBC transfusion, IV PPI therapy, serial cbc, supportive care, Discussed risks and benefits of therapeutic anticoagulation with family. (2) Blood loss anemia Current Visit: Yes Status: Acute Plan to address problem: PRBC Transfusion, supportive care, repeat cbc in AM. (3) CAD (coronary artery disease) Current Visit: Yes Status: Acute Qualifiers: Associated angina: without angina Plan to address problem: statin therapy, risk factor reduction, low cholesterol diet. (4) Atrial fibrillation Current Visit: Yes Status: Acute Qualifiers: Atrial fibrillation type: persistent Qualified Code(s): I48.1 - Persistent atrial fibrillation Plan to address problem: continue current therapy, remote telemetry, continue therapeutic anticoagulation as per patient, rate control. (5) DVT prophylaxis Current Visit: Yes Status: Acute Plan to address problem: SCD to BLE while in bed.
[2019-03-31] MEDS ORDERED: SODIUM CHLORIDE FLUSH SYRINGE 10 ML IV PRN (17:30)
[2019-03-31] MEDS ORDERED: PROVENTIL IH PRN (17:30)
[2019-03-31] MEDS: SODIUM CHLORIDE FLUSH SYRINGE 10 ML IV SCH (21:42)
[2019-03-31] MEDS: PROTONIX IV SCH (21:42)
[2019-04-01 05:06] LABS: Basophils % (Auto) 0.7 % (0.0-1.8); Eosinophils # (Auto) 0.1 K/mm3 (0.0-0.4); Eosinophils % (Auto) 2.2 % (0.0-4.3); Hematocrit 28.9 % (35.5-45.6); Hemoglobin 9.4 gm/dl (11.8-15.2); Lymphocytes # (Auto) 1.3 K/mm3 (1.2-5.4); Lymphocytes % (Auto) 19.8 % (13.4-35.0); Mean Corpuscular HGB Conc 33 % (32-34); Mean Corpuscular Volume 87 fl (84-94); Monocytes # (Auto) 0.7 K/mm3 (0.0-0.8); Monocytes % (Auto) 10.4 % (0.0-7.3); Platelet Count 214 K/mm3 (140-440); Red Cell Distribution Width 18.9 % (13.2-15.2)
[2019-04-01 05:24] LABS: Alanine Aminotransferase 19 units/L (7-56); Albumin 3.8 g/dL (3.9-5); BUN/Creatinine Ratio 14; Blood Urea Nitrogen 14 mg/dL (9-20); Calcium 9.1 mg/dL (8.4-10.2); Hemolysis Index 2
--- NOTE | 2019-04-01 10:04 | Consultation ---
History of Present Illness - Reason for Consult Consult date: 04/01/19 Anemia Requesting physician: DAMION GARVEY - History of Present Illness Mr. Morton is an 89 yo male who was advised by his PCP to come to ER for anemia detected on routine physical on 03/26 visit. Pt came and was found to have Hgb = 6.8, MCV = 86. Pt denies past hx of anemia. BMs usu tiw, unchanged. Pt states stool was black 2 days ago. No abd pain, N/V, hx of GI bleed, hx of PUD or liver disease, no weight loss. Pt is on Xarelto for a hx of CVA and A fib. He denies ASA/NSAIDs. No CP, SOB, lightheadedness or dizziness. Meds reviewed. Past History Past Medical History: atrial fib, hypertension, hyperlipidemia, stroke, other (Vascular dementia) Past Surgical History: Other ( Cardiac stent x 6) Social history: , lives with family. denies: smoking, alcohol abuse, prescription drug abuse Family history: no significant family history (reviewed), other (reviewed) Medications and Allergies Allergies Allergy/AdvReac Type Severity Reaction Status Date / Time No Known Allergies Allergy Unverified 07/14/16 10:38 Home Medications Medication Instructions Recorded Confirmed Last Taken Type Dicyclomine [Bentyl] 10 mg PO QID PRN #20 capsule 03/19/17 Unknown Rx Ondansetron [Zofran Odt] 4 mg PO QID PRN #20 tab.rapdis 03/19/17 Unknown Rx Centrum Silver Tablet 1 tab PO QDAY 04/01/19 04/01/19 Unknown History Co Q10 100 mg PO QDAY 04/01/19 04/01/19 Unknown History Ezetimibe 10 mg PO QDAY 04/01/19 04/01/19 Unknown History Isosorbide Mononitrate 90 mg PO QDAY 04/01/19 04/01/19 Unknown History Pravastatin Sodium 80 mg PO QHS 04/01/19 04/01/19 Unknown History Preservision Areds 2 Softgel 2 tab PO QDAY 04/01/19 04/01/19 Unknown History Ranolazine ER 500 mg PO BID 04/01/19 04/01/19 Unknown History Telmisartan [Micardis] 80 mg PO QDAY 04/01/19 04/01/19 Unknown History Xarelto 15 mg PO 04/01/19 Unknown History amLODIPine 5 mg PO HS 04/01/19 04/01/19 Unknown History Active Meds: Active Medications Albuterol (Proventil) 2.5 mg IH Q3H PRN PRN Reason: Shortness Of Breath Pantoprazole Sodium (Protonix) 40 mg IV BID [facility] Last Admin: 03/31/19 21:42 Dose: 40 mg Documented by: Sodium Chloride (Sodium Chloride Flush Syringe 10 Ml) 10 ml IV BID [facility] Last Admin: 03/31/19 21:42 Dose: 10 ml Documented by: Sodium Chloride (Sodium Chloride Flush Syringe 10 Ml) 10 ml IV PRN PRN PRN Reason: LINE FLUSH Review of Systems All systems: negative (as noted in HPI) Exam - Constitutional Vitals: Temp Pulse Resp BP Pulse Ox 97.6 F 65 21 154/66 95 04/01/19 08:00 04/01/19 06:11 04/01/19 06:11 04/01/19 06:11 04/01/19 08:43 General appearance: Present: no acute distress - EENT Eyes: Present: PERRL, EOM intact ENT: hearing intact - Respiratory Respiratory effort: normal Respiratory: bilateral: CTA - Cardiovascular Rhythm: irregularly irregular Heart Sounds: Present: S1 & S2 - Abdominal General gastrointestinal: Present: soft, non-tender - Rectal Rectal Exam: stool brown Results - Labs CBC & Chem 7: 04/01/19 03:54 04/01/19 03:54 Labs: Abnormal lab results 03/31/19 03/31/19 03/31/19 Range/Units 15:45 15:45 15:45 WBC 4.4 L (4.5-11.0) K/mm3 RBC 2.47 L (3.65-5.03) M/mm3 Hgb 6.8 L (11.8-15.2) gm/dl Hct 21.2 L (35.5-45.6) % RDW 20.6 H (13.2-15.2) % [place] % (Auto) 11.6 H (0.0-7.3) % PT (12.2-14.9) Sec. INR (0.87-1.13) APTT (24.2-36.6) Sec. Glucose 116 H (75-100) mg/dL Albumin (3.9-5) g/dL Crossmatch See Detail 03/31/19 04/01/19 04/01/19 Range/Units 15:45 03:54 03:54 WBC (4.5-11.0) K/mm3 RBC 3.30 L (3.65-5.03) M/mm3 Hgb 9.4 L (11.8-15.2) gm/dl Hct 28.9 L D (35.5-45.6) % RDW 18.9 H (13.2-15.2) % [place] % (Auto) 10.4 H (0.0-7.3) % PT 25.1 H (12.2-14.9) Sec. INR 2.33 H (0.87-1.13) APTT 45.6 H (24.2-36.6) Sec. Glucose (75-100) mg/dL Albumin 3.8 L (3.9-5) g/dL Crossmatch Assessment and Plan 1. Anemia - etiology unclear. Given that pt is on Xarelto, last dose 03/31, need to exclude GI blood loss, though no yaima blood noted. Hematologic process is a consideration if GI w/u negative. - EGD/colon tomorrow - monitor H/H and transfuse as needed - Hold Xarelto for now - check iron levels etc, possibly as outpatient, given recent transfusion
[2019-04-01] MEDS: PROTONIX IV SCH ×2 (10:18→22:24)
[2019-04-01] MEDS: SODIUM CHLORIDE FLUSH SYRINGE 10 ML IV SCH ×2 (10:19→22:26)
[2019-04-01] MEDS ORDERED: ZOFRAN ODT PO PRN (10:26)
[2019-04-01] MEDS ORDERED: BENTYL PO PRN (12:44)
--- NOTE | 2019-04-01 15:51 | Progress Note ---
Assessment and Plan Assessment and plan: 89 YO Male with HTN, CVA, CAD S/P Stent Placement, HLD, Atrial Fib on Therapeutic Anticoagulation with Xarelto, Vascular Dementia presents to ED for evaluation. Pt states that he has experienced two episodes of dark and tarry stools over the past 2 days. He went to visit his primary care physician due to cessation of lethargy and some skin pallor over the past several weeks. Labs done in the office showed a low hemoglobin for which the patient was recommended to come to the ED. Bleeding was noted to have low hemoglobin and also Hemoccult positive stool and admitted for symptomatic anemia. Symptomatic Anemia secondary to GI bleed, S/P 2 unit PRBC Positive Hemoccult suspect GI bleed AFib on Anticoagulation with Xarealto Secoundray coagulable state Plan NPO AFTER MIDNIGHT TONIGHT Monitor h/h No antiplatelet or anti-machinery Evaluate for other hematology sources\dvt/gi priory Transfer to [facility] Resume home meds Depending ON OUTCOME OF COLONOSCOPY AND ENDOSCASOPY Discussed with patient and nosing History Interval history: Admitted with ANEMIA-SENT BY PCP Patient seen on examination today resting comfortably sitting up by the bedside. Denies any chest pain nausea vomiting denies any bright red blood per rectum spouse is at the bedside with hIM. Hospitalist Physical - Physical exam Narrative exam: VITAL SIGNS: Reviewed. GENERAL: The patient appears normally developed, Vital signs as documented. HEAD: No signs of head trauma. EYES: Pupils are equal. Extraocular motions intact. EARS: Hearing grossly intact. MOUTH: Oropharynx is normal. NECK: No adenopathy, no JVD. CHEST: Chest with clear breath sounds bilaterally. No wheezes, rales, or rhonchi. CARDIAC: Irregularly irregular rate and rhythm S1 and S2, without murmurs, gallops, or rubs. VASCULAR: No Edema. Peripheral pulses normal and equal in all extremities. ABDOMEN: Soft, non tender and non distended. No rebound or guarding, and no masses palpated. Bowel Sounds normal. MUSCULOSKELETAL: Good range of motion of all major joints. Extremities without clubbing, cyanosis or edema. NEUROLOGIC EXAM: Alert and oriented x 3 No focal sensory or strength deficits. Speech normal. Follows commands. PSYCHIATRIC: Mood normal. SKIN: detial exam as documented in skin assessment - Constitutional Vitals: Temp Pulse Resp BP Pulse Ox 97.8 F 64 20 166/73 98 07/29/19 13:47 04/01/19 13:47 04/01/19 13:47 04/01/19 13:47 04/01/19 13:47 General appearance: Present: no acute distress Results - Labs CBC & Chem 7: 04/01/19 03:54 04/01/19 03:54 Labs: Laboratory Last Values WBC 6.7 K/mm3 (4.5-11.0) 04/01/19 03:54 RBC 3.30 M/mm3 (3.65-5.03) L 04/01/19 03:54 Hgb 9.4 gm/dl (11.8-15.2) L 04/01/19 03:54 Hct 28.9 % (35.5-45.6) L D 04/01/19 03:54 MCV 87 fl (84-94) 04/01/19 03:54 MCH 28 pg (28-32) 04/01/19 03:54 MCHC 33 % (32-34) 04/01/19 03:54 RDW 18.9 % (13.2-15.2) H 04/01/19 03:54 Plt Count 214 K/mm3 (140-440) 04/01/19 03:54 Lymph % (Auto) 19.8 % (13.4-35.0) 04/01/19 03:54 [place] % (Auto) 10.4 % (0.0-7.3) H 04/01/19 03:54 Eos % (Auto) 2.2 % (0.0-4.3) 04/01/19 03:54 Baso % (Auto) 0.7 % (0.0-1.8) 04/01/19 03:54 Lymph # 1.3 K/mm3 (1.2-5.4) 04/01/19 03:54 [place] # 0.7 K/mm3 (0.0-0.8) 04/01/19 03:54 Eos # 0.1 K/mm3 (0.0-0.4) 04/01/19 03:54 Baso # 0.0 K/mm3 (0.0-0.1) 04/01/19 03:54 Seg Neutrophils % 66.9 % (40.0-70.0) 04/01/19 03:54 Seg Neutrophils # 4.5 K/mm3 (1.8-7.7) 04/01/19 03:54 PT 25.1 Sec. (12.2-14.9) H 03/31/19 15:45 INR 2.33 (0.87-1.13) H 03/31/19 15:45 APTT 45.6 Sec. (24.2-36.6) H 03/31/19 15:45 Sodium 142 mmol/L (137-145) 04/01/19 03:54 Potassium 4.1 mmol/L (3.6-5.0) 04/01/19 03:54 Chloride 107.0 mmol/L (98-107) 04/01/19 03:54 Carbon Dioxide 24 mmol/L (22-30) 04/01/19 03:54 15 mmol/L 04/01/19 03:54 BUN 14 mg/dL (9-20) 04/01/19 03:54 1.0 mg/dL (0.8-1.5) 04/01/19 03:54 Estimated GFR > 60 ml/min 04/01/19 03:54 14 % 04/01/19 03:54 Glucose 92 mg/dL (75-100) 04/01/19 03:54 Calcium 9.1 mg/dL (8.4-10.2) 04/01/19 03:54 0.90 mg/dL (0.1-1.2) 04/01/19 03:54 AST 21 units/L (5-40) 04/01/19 03:54 ALT 19 units/L (7-56) 04/01/19 03:54 82 units/L (35-129) 04/01/19 03:54 6.3 g/dL (6.3-8.2) 04/01/19 03:54 3.8 g/dL (3.9-5) L 04/01/19 03:54 1.5 % 04/01/19 03:54 Blood Type A POSITIVE 03/31/19 15:45 Antibody Screen Negative 03/31/19 15:45 Crossmatch See Detail 03/31/19 15:45 Active Medications - Current Medications Current Medications: Generic Name Dose Route Start Last Admin Trade Name Freq PRN Reason Stop Dose Admin Albuterol 2.5 mg 03/31/19 17:30 Proventil IH Q3H PRN Shortness Of Breath Dicyclomine HCl 10 mg 04/01/19 12:44 Bentyl PO QID PRN Pain Miscellaneous Medication 5 mg 04/01/19 22:00 Amlodipine PO HS SHANI Miscellaneous Medication 1 tab 04/02/19 10:00 Centrum Silver Tablet PO QDAY SHANI Miscellaneous Medication 100 mg 04/02/19 10:00 Co Q10 PO QDAY SHANI Miscellaneous Medication 10 mg 04/02/19 10:00 Ezetimibe PO QDAY SHANI Miscellaneous Medication 90 mg 04/02/19 10:00 Isosorbide Mononitrate PO QDAY SHANI Miscellaneous Medication 80 mg 04/01/19 22:00 Pravastatin Sodium PO QHS SHANI Miscellaneous Medication 2 tab 04/02/19 10:00 Preservision Areds 2 Softgel PO QDAY [facility] Miscellaneous Medication 500 mg 04/01/19 22:00 Ranolazine Er PO BID SHANI Miscellaneous Medication 80 mg 04/02/19 10:00 Telmisartan [Micardis] PO QDAY SHANI Ondansetron HCl 4 mg 04/01/19 10:26 Zofran Odt PO QID PRN Nausea Pantoprazole Sodium 40 mg 03/31/19 22:00 04/01/19 10:18 Protonix IV 40 mg BID SHANI Administration Polyethylene Glycol/Electrolytes 4,000 ml 04/01/19 17:00 Golytely PO 04/01/19 17:01 ONCE ONE Sodium Chloride 10 ml 03/31/19 22:00 04/01/19 10:19 Sodium Chloride Flush Syringe 10 Ml IV 10 ml BID SHANI Administration Sodium Chloride 10 ml 03/31/19 17:30 Sodium Chloride Flush Syringe 10 Ml IV PRN PRN LINE FLUSH
[2019-04-01] MEDS ORDERED: GOLYTELY PO ONE (17:00)
[2019-04-01] MEDS ORDERED: PRAVASTATIN SODIUM 80 MG PO SCH (22:00)
[2019-04-01] MEDS ORDERED: NON-FORMULARY (Amlodipine 5 MG) PO SCH (22:00)
[2019-04-01] MEDS ORDERED: NORVASC PO SCH (22:00)
[2019-04-01] MEDS ORDERED: RANEXA ER PO SCH (22:00)
[2019-04-01] MEDS ORDERED: PRAVACHOL PO SCH (22:00)
[2019-04-01] MEDS ORDERED: RANOLAZINE 500 MG PO SCH (22:00)
[2019-04-01 23:44] LABS: Bilirubin,Direct 0.2 mg/dL (0-0.2)
[2019-04-02 01:09] LABS: INR 1.45 (0.87-1.13)
[2019-04-02 05:33] LABS: Hemoglobin 9.5 gm/dl (11.8-15.2); Mean Corpuscular HGB Conc 33 % (32-34); Mean Corpuscular Volume 85 fl (84-94); Platelet Count 210 K/mm3 (140-440)
[2019-04-02 06:03] LABS: Alanine Aminotransferase 16 units/L (7-56); Albumin 3.5 g/dL (3.9-5); BUN/Creatinine Ratio 14; Blood Urea Nitrogen 11 mg/dL (9-20); Calcium 8.7 mg/dL (8.4-10.2); Hemolysis Index 2
[2019-04-02] MEDS ORDERED: KCL 10MEQ/100ML 10 MEQ/100 ML BAG IV SCH (09:00)
[2019-04-02] MEDS ORDERED: NON-FORMULARY (Telmisartan [Micardis] 80 MG) PO SCH (10:00)
[2019-04-02] MEDS ORDERED: COZAAR PO SCH (10:00)
[2019-04-02] MEDS ORDERED: IMDUR PO SCH ×2 (10:00)
[2019-04-02] MEDS ORDERED: THERAGRAN-M Tab PO SCH (10:00)
[2019-04-02] MEDS ORDERED: ISOSORBIDE MONONITRATE 90 MG PO SCH (10:00)
[2019-04-02] MEDS ORDERED: EZETIMIBE 10 MG PO SCH (10:00)
[2019-04-02] MEDS ORDERED: ZETIA PO SCH (10:00)
[2019-04-02] MEDS ORDERED: CENTRUM SILVER PO SCH (10:00)
[2019-04-02] MEDS ORDERED: PRESERVISION AREDS PO SCH (10:00)
[2019-04-02] MEDS ORDERED: CO Q10 100 MG PO SCH (10:00)
--- NOTE | 2019-04-02 10:47 | Progress Note ---
Hospitalist Physical - Physical exam Narrative exam: Gen: Not in acute distress, sitting up in bed, HEENT: Normocephalic, atraumatic Neck: supple, no JVD Heart: S1 and S2 reg, no murmurs, rubs or gallop Lungs: Clear to auscultation, no wheeze Abd: soft, non tender, non distended, normal BS, Ext: No edema, no clubbing, no cyanosis Neuro: Awake,alert, Oriented X 3. No focal neuro signs Psych: normal mood - Constitutional Vitals: Temp Pulse Resp BP Pulse Ox 98.0 F 70 18 155/82 95 04/02/19 01:49 04/02/19 09:04 04/02/19 09:04 04/02/19 01:49 04/02/19 09:04 General appearance: Present: no acute distress Results - Labs CBC & Chem 7: 04/02/19 04:44 04/02/19 04:44 Labs: Laboratory Last Values WBC 6.3 K/mm3 (4.5-11.0) 04/02/19 04:44 RBC 3.40 M/mm3 (3.65-5.03) L 04/02/19 04:44 Hgb 9.5 gm/dl (11.8-15.2) L 04/02/19 04:44 Hct 29.0 % (35.5-45.6) L 04/02/19 04:44 MCV 85 fl (84-94) 04/02/19 04:44 MCH 28 pg (28-32) 04/02/19 04:44 MCHC 33 % (32-34) 04/02/19 04:44 RDW 19.0 % (13.2-15.2) H 04/02/19 04:44 Plt Count 210 K/mm3 (140-440) 04/02/19 04:44 Lymph % (Auto) 19.8 % (13.4-35.0) 04/01/19 03:54 [place] % (Auto) 10.4 % (0.0-7.3) H 04/01/19 03:54 Eos % (Auto) 2.2 % (0.0-4.3) 04/01/19 03:54 Baso % (Auto) 0.7 % (0.0-1.8) 04/01/19 03:54 Lymph # 1.3 K/mm3 (1.2-5.4) 04/01/19 03:54 [place] # 0.7 K/mm3 (0.0-0.8) 04/01/19 03:54 Eos # 0.1 K/mm3 (0.0-0.4) 04/01/19 03:54 Baso # 0.0 K/mm3 (0.0-0.1) 04/01/19 03:54 Seg Neutrophils % 66.9 % (40.0-70.0) 04/01/19 03:54 Seg Neutrophils # 4.5 K/mm3 (1.8-7.7) 04/01/19 03:54 PT 17.3 Sec. (12.2-14.9) H 04/02/19 00:32 INR 1.45 (0.87-1.13) H 04/02/19 00:32 APTT 45.6 Sec. (24.2-36.6) H 03/31/19 15:45 Sodium 143 mmol/L (137-145) 04/02/19 04:44 Potassium 3.3 mmol/L (3.6-5.0) L 04/02/19 04:44 Chloride 106.2 mmol/L (98-107) 04/02/19 04:44 Carbon Dioxide 26 mmol/L (22-30) 04/02/19 04:44 14 mmol/L 04/02/19 04:44 BUN 11 mg/dL (9-20) 04/02/19 04:44 0.8 mg/dL (0.8-1.5) 04/02/19 04:44 Estimated GFR > 60 ml/min 04/02/19 04:44 14 % 04/02/19 04:44 Glucose 109 mg/dL (75-100) H 04/02/19 04:44 Calcium 8.7 mg/dL (8.4-10.2) 04/02/19 04:44 0.80 mg/dL (0.1-1.2) 04/02/19 04:44 0.2 mg/dL (0-0.2) 04/01/19 23:09 0.8 mg/dL 04/01/19 23:09 AST 21 units/L (5-40) 04/02/19 04:44 ALT 16 units/L (7-56) 04/02/19 04:44 83 units/L (35-129) 04/02/19 04:44 6.1 g/dL (6.3-8.2) L 04/02/19 04:44 3.5 g/dL (3.9-5) L 04/02/19 04:44 1.3 % 04/02/19 04:44 Blood Type A POSITIVE 03/31/19 15:45 Antibody Screen Negative 03/31/19 15:45 Crossmatch See Detail 03/31/19 15:45 Active Medications - Current Medications Current Medications: Generic Name Dose Route Start Last Admin Trade Name Freq PRN Reason Stop Dose Admin Albuterol 2.5 mg 03/31/19 17:30 Proventil IH Q3H PRN Shortness Of Breath Amlodipine Besylate 5 mg 04/01/19 22:00 04/01/19 22:25 Norvasc PO 5 mg QHS SHANI Administration Dicyclomine HCl 10 mg 04/01/19 12:44 Bentyl PO QID PRN Pain Ezetimibe 10 mg 04/02/19 10:00 Zetia PO QDAY [facility] Potassium Chloride 10 meq in 100 mls @ 100 mls/hr 04/02/19 09:00 Kcl 10meq/100ml IV 04/02/19 10:59 Q1H SHANI Isosorbide Mononitrate 60 mg 04/02/19 10:00 Imdur PO QDAY SHANI Isosorbide Mononitrate 30 mg 04/02/19 10:00 Imdur PO DAILY [facility] Losartan Potassium 50 mg 04/02/19 10:00 Cozaar PO QDAY SHANI Miscellaneous Medication 100 mg 04/02/19 10:00 Co Q10 PO QDAY SHANI Miscellaneous Medication 2 tab 04/02/19 10:00 Preservision Areds 2 Softgel PO QDAY [facility] Multivitamins/Minerals 1 each 04/02/19 10:00 Theragran-M Tab PO QDAY [facility] Ondansetron HCl 4 mg 04/01/19 10:26 Zofran Odt PO QID PRN Nausea Pantoprazole Sodium 40 mg 03/31/19 22:00 04/01/19 22:24 Protonix IV 40 mg BID SHANI Administration Pravastatin Sodium 80 mg 04/01/19 22:00 04/01/19 22:26 Pravachol PO 80 mg QHS SHANI Administration Ranolazine 500 mg 04/01/19 22:00 04/01/19 22:24 Ranexa Er PO 500 mg BID SHANI Administration Sodium Chloride 10 ml 03/31/19 22:00 04/01/19 22:26 Sodium Chloride Flush Syringe 10 Ml IV 10 ml BID SHANI Administration Sodium Chloride 10 ml 03/31/19 17:30 Sodium Chloride Flush Syringe 10 Ml IV PRN PRN LINE FLUSH
[2019-04-02] MEDS: SODIUM CHLORIDE FLUSH SYRINGE 10 ML IV SCH (11:29)
[2019-04-02] MEDS: KCL 10MEQ/100ML 10 MEQ/100 ML BAG IV SCH ×2 (12:15→16:40)
[2019-04-02] MEDS ORDERED: NACL 0.9% 1000 ML 1,000 ML IV SCH (13:00)
[2019-04-02] MEDS ORDERED: XYLOCAINE MPF 2% ONE (13:00)
--- NOTE | 2019-04-02 13:24 | Anesthesia Day of Surgery ---
Anesthesia Day of Surgery - Day of Surgery Patient Examined: Yes Patient H&P Reviewed: Yes Patient is NPO: Yes
--- NOTE | 2019-04-02 13:29 | Anesthesia Consultation ---
Anesthesia Consult and Med Hx Date of service: 04/02/19 - Airway Anesthetic Teeth Evaluation: Good ROM Head & Neck: Adequate Mental/Hyoid Distance: Adequate Mallampati Class: Class II Intubation Access Assessment: Probably Good - Pulmonary Exam CTA: Yes - Cardiac Exam Cardiac Exam: No Murmur - Pre-Operative Health Status ASA Pre-Surgery Classification: ASA3 Proposed Anesthetic Plan: MAC - Cardiovascular System Hx Hypertension: Yes Hx Coronary Artery Disease: Yes Hx Cardia Arrhythmia: Yes - Central Nervous System CVA: Yes (2014)
[2019-04-02] MEDS ORDERED: DIPRIVAN 10 MG/ML IV ONE ×2 (13:40)
--- NOTE | 2019-04-02 15:05 | Post Operative Note ---
Pre-op diagnosis: Anemia Post-op diagnosis: other (Mild nonerosive gastric antritis, and normal colonoscopy) Findings: 1. Mild patchy antral erythema. 2. Otherwise normal EGD. 3. Normal colonscopy - fair prep, cannot exclude small polyps or AVMs. 4. No evidence of bleeding. Procedure: EGD/Colonoscopy Anesthesia: [facility] [place] Surgeon: LISSETTE GOYAL Estimated blood loss: none Pathology: none Condition: stable Disposition: floor (Advance diet, and okay to D/C from GI standpoint if H/H stable.)
[2019-04-02 15:31] VITALS: BP 153/71
--- NOTE | 2019-04-02 16:20 | Operative Report ---
PROCEDURE: Upper endoscopy and colonoscopy. PREOPERATIVE DIAGNOSIS: Anemia. POSTOPERATIVE DIAGNOSES: Mild nonerosive gastritis and normal colonoscopy. SEDATION: MAC by Anesthesia. HISTORY: The patient is an 89-year-old man on Xarelto for chronic AFib, who was referred for routine exam showing a hemoglobin of 6.8 as an outpatient. DESCRIPTION OF PROCEDURE: Indications, risks, and benefits were explained and consent was obtained. The patient was placed in left lateral decubitus position and sedated. GeoTrac video upper endoscope was passed through the mouth and oropharynx into the descending duodenum. Scope was then gradually withdrawn with close inspection of the mucosa. Subsequently, the patient was rotated and a colonoscope was advanced in the rectum after digital examination and passed with minimal difficulty to the cecum, which was identified by the ileocecal valve and the appendiceal orifice. Scope was then gradually withdrawn with close inspection of mucosa. Prep was fair with areas of thick stool scattered in the colon. This precluded visualization of small polyps and AVMs. FINDINGS: 1. Patchy erythema in antrum consistent with nonerosive gastritis. 2. Otherwise, normal esophagus and stomach. 3. Normal appearing duodenal bulb and duodenum. 4. Visualized colonic mucosa is normal appearing with no evidence of mass lesions, vascular lesions or inflammation. The patient tolerated procedures well without immediate complications. IMPRESSION: 1. Nonerosive gastritis. 2. Otherwise, normal colonoscopy and endoscopy. PLAN: 1. Resume Xarelto. 2. Monitor H and H closely. 3. Check iron levels as an outpatient. 4. Check stool studies as an outpatient and consider PillCam evaluation versus chronic oral iron supplementation if the patient is iron deficient. 5. Follow up as outpatient in approximately 3 weeks to recheck H and H and ensure further planning. JOB# [id number] HRC/NTS
--- NOTE | 2019-04-02 16:41 | Discharge Summary ---
Providers - Providers Date of Admission: 03/31/19 17:31 Date of discharge: 04/02/19 Attending physician: ANGEL ORTIZ 03/31/19 17:30 Consult to Physician [CONS] Routine Comment: dr. gutiérrez it security consultant Consulting Provider: LISSETTE GUTIÉRREZ Physician Instructions: Reason For Exam: GI bleed 04/01/19 15:33 Physical Therapy Evaluation and Treat [CONS] Routine Comment: Reason For Exam: Debility Primary care physician: [facility] MD REECE Hospitalization Condition: Fair Disposition: DC-01 TO HOME OR SELFCARE Exam - Constitutional Vitals: Temp Pulse Resp BP Pulse Ox 98.7 F 68 11 L 153/71 96 04/02/19 15:01 04/02/19 15:30 04/02/19 15:30 04/02/19 15:30 04/02/19 15:30 Plan Activity: no restrictions Diet: low fat, low cholesterol, low salt Additional Instructions: 1.Follow up with PCP in 1 week. 2.Follow up with Dr. Gutiérrez in 1 week. [facility] [Primary Care Provider] - 7 Days Prescriptions: Pantoprazole [Protonix] 40 mg PO QDAY #30 tablet
== END 2019-04-02 17:55 | disposition home or self-care (01) | DRG 378 ==
LOC: ED 15:28 → IMCU 17:31 → 2B-ACE 04-01 14:04
PROVIDERS: ADMIT Internal Medicine; ATTEND Internal Medicine
PROC: 30233N1 Transfusion of Nonautologous Red Blood Cells into Peripheral Vein, Percutaneous Approach (ICD-10-PCS; 2019-03-31)
PROC: 0DJ08ZZ Inspection of Upper Intestinal Tract, Via Natural or Artificial Opening Endoscopic (ICD-10-PCS; principal; 2019-04-02)
PROC: 0DJD8ZZ Inspection of Lower Intestinal Tract, Via Natural or Artificial Opening Endoscopic (ICD-10-PCS; 2019-04-02)
DX: K29.71 Gastritis, unspecified, with bleeding (principal); I48.1 Persistent atrial fibrillation; F01.51 Vascular dementia, unspecified severity, with behavioral disturbance; D62 Acute posthemorrhagic anemia; D68.69 Other thrombophilia; I25.10 Atherosclerotic heart disease of native coronary artery without angina pectoris; E78.5 Hyperlipidemia, unspecified; I10 Essential (primary) hypertension; Z86.73 Personal history of transient ischemic attack (TIA), and cerebral infarction without residual deficits; Z95.5 Presence of coronary angioplasty implant and graft; Z79.01 Long term (current) use of anticoagulants
CPT/HCPCS: 36415; 36430; 80048; 80053; 82247; 82248; 83010; 85025; 85027; 85610; 85730; 86850; 86900; 86901; 86920; G0378; A9270-GY; C9113; J2704; J3480; J7030; J7040; P9016

== ENCOUNTER 2020-08-30 10:03 | Emergency (ER) | payer MEDICARE, OTHER ==
[2020-08-30 10:17] VITALS: BP 141/79
--- NOTE | 2020-08-30 10:33 | Event Note ---
ED Screening Note Date of service: 08/30/20 Time: : ED Screening Note: 89-year-old male presents to the emergency room with a head injury and bruising to his face secondary to a fall last Monday. Patient states that he just does not feel good. Patient states he is not able to pinpoint why. Patient reports that he had tripped when he turned over a foot stool. reports no change in behavior. Patient is currently on Xarelto. This initial assessment/diagnostic orders/clinical plan/treatment(s) is/are subject to change based on patients health status, clinical progression and re- assessment by fellow clinical providers in the ED. Further treatment and workup at subsequent clinical providers discretion. Patient/guardian urged not to elope from the ED as their condition may be serious if not clinically assessed and managed. Initial orders include:
--- NOTE | 2020-08-30 11:05 | Cat Scan Report ---
CT head/brain wo con INDICATION / CLINICAL INFORMATION: 89 years Male; fall head injury on xarelto. TECHNIQUE: Routine CT head without contrast. All CT scans at this location are performed using CT dos e reduction for ALARA by means of automated exposure control. COMPARISON: The study is compared to the previous CT of 08/30/2016. FINDINGS: BRAIN / INTRACRANIAL CONTENTS: There is a hematoma involving the right frontal scalp. However, there is no CT evidence of acute intracranial hemorrhage or significant mass effect. There is extensive cerebral white matter disease most consistent with microvascular angiopathy which appears to mildly progressed from the prior study. There is continued encephalomalacia involving the left frontal lobe compatible with old infarct. There is advanced cerebral and cerebellar atrophy with associated prominence of the ventricular system. ORBITS: No significant abnormality of visualized orbits. SINUSES / MASTOIDS: There is continued opacification involving the right ethmoid sinuses. There is de veloping opacification within the right frontal sinus. CRANIOCERVICAL JUNCTION: No significant abnormality. ADDITIONAL FINDINGS: The calvarium appears intact. IMPRESSION: 1. There is a hematoma involving right frontal scalp. However, there is no clear CT evidence of acute intracranial hemorrhage. 2. 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 Signer Name: Venkatesh Shine MD Signed: 08/30/2020 11:00 AM Workstation Name: [employer]
[2020-08-30 11:48] LABS: Basophils % (Auto) 0.5 % (0.0-1.8); Eosinophils # (Auto) 0.2 K/mm3 (0.0-0.4); Eosinophils % (Auto) 3.3 % (0.0-4.3); Hematocrit 33.8 % (35.5-45.6); Hemoglobin 11.5 gm/dl (11.8-15.2); Lymphocytes # (Auto) 1.1 K/mm3 (1.2-5.4); Lymphocytes % (Auto) 14.9 % (13.4-35.0); Mean Corpuscular HGB Conc 34 % (32-34); Mean Corpuscular Volume 95 fl (84-94); Monocytes # (Auto) 0.6 K/mm3 (0.0-0.8); Monocytes % (Auto) 8.5 % (0.0-7.3); Platelet Count 166 K/mm3 (140-440); Red Blood Count 3.56 M/mm3 (3.65-5.03); Red Cell Distribution Width 14.1 % (13.2-15.2)
[2020-08-30 12:09] LABS: Alanine Aminotransferase 18 units/L (7-56); Albumin 3.7 g/dL (3.9-5); BUN/Creatinine Ratio 22; Blood Urea Nitrogen 22 mg/dL (9-20); Calcium 9.3 mg/dL (8.4-10.2); Hemolysis Index 11
[2020-08-30 12:39] LABS: Bilirubin,Urine NEG (Negative); Blood,Urine NEG (Negative); Color,Urine Yellow (Yellow); Mucus,Urine FEW /HPF; Protein,Urine <15 mg/dL mg/dL (Negative); Urobilinogen,Urine < 2.0 mg/dL (<2.0); WBC,Urine < 1.0 /HPF (0.0-6.0)
--- NOTE | 2020-08-30 13:36 | Emergency Department Report ---
ED General Adult HPI - General Chief complaint: Head Injury Stated complaint: HEAD INJURY Time Seen by Provider: 08/30/20 11:28 Source: patient Mode of arrival: Ambulatory Limitations: No Limitations - History of Present Illness Initial comments: The patient presents to the emergency department the chief complaint of a fall. Patient states 2 days ago he fell hitting his head on the floor. Patient states he tripped over the stripping of the doorway. Patient denies loss of consciousness but states he came to get evaluated because he is on Xarelto. -: Sudden Location: head Severity scale (0 -10): 0 Consistency: constant Improves with: none Worsens with: none Associated Symptoms: denies other symptoms Treatments Prior to Arrival: none - Related Data Home Medications Medication Instructions Recorded Confirmed Last Taken Centrum Silver Tablet 1 tab PO QDAY 04/01/19 04/01/19 Unknown Co Q10 100 mg PO QDAY 04/01/19 04/01/19 Unknown Ezetimibe 10 mg PO QDAY 04/01/19 04/01/19 Unknown Isosorbide Mononitrate 90 mg PO QDAY 04/01/19 04/01/19 Unknown Pravastatin Sodium 80 mg PO QHS 04/01/19 04/01/19 Unknown Preservision Areds 2 Softgel 2 tab PO QDAY 04/01/19 04/01/19 Unknown Ranolazine ER 500 mg PO BID 04/01/19 04/01/19 Unknown Telmisartan [Micardis] 80 mg PO QDAY 04/01/19 04/01/19 Unknown Xarelto 15 mg PO DAILY 04/01/19 04/02/19 Unknown amLODIPine 5 mg PO HS 04/01/19 04/01/19 Unknown Previous Rx's Medication Instructions Recorded Last Taken Type Dicyclomine [Bentyl] 10 mg PO QID PRN #20 capsule 03/19/17 Unknown Rx Ondansetron [Zofran Odt] 4 mg PO QID PRN #20 tab.rapdis 03/19/17 Unknown Rx Pantoprazole [Protonix] 40 mg PO QDAY #30 tablet 04/02/19 Unknown Rx Allergies Allergy/AdvReac Type Severity Reaction Status Date / Time No Known Allergies Allergy Unverified 07/14/16 10:38 ED Review of Systems ROS: Stated complaint: HEAD INJURY Other details as noted in HPI Comment: All other systems reviewed and negative Constitutional: denies: chills, fever Eyes: denies: eye pain, eye discharge, vision change ENT: denies: ear pain, throat pain Respiratory: denies: cough, shortness of breath, wheezing Cardiovascular: denies: chest pain, palpitations Endocrine: no symptoms reported Gastrointestinal: denies: abdominal pain, nausea, diarrhea Genitourinary: denies: urgency, dysuria Musculoskeletal: denies: back pain, joint swelling, arthralgia Skin: denies: rash, lesions Neurological: denies: headache, weakness, paresthesias Psychiatric: denies: anxiety, depression Hematological/Lymphatic: denies: easy bleeding, easy bruising ED Past Medical Hx - Past Medical History Previous Medical History?: Yes Hx Hypertension: Yes Hx CVA: Yes Additional medical history: elevated cholesterol, bilateral hearing aids, AFIB - Surgical History Past Surgical History?: Yes Hx Coronary Stent: Yes (6) Additional Surgical History: bilateral eye implants - Social History Smoking Status: Never Smoker Substance Use Type: None - Medications Home Medications: Home Medications Medication Instructions Recorded Confirmed Last Taken Type Dicyclomine [Bentyl] 10 mg PO QID PRN #20 capsule 03/19/17 04/02/19 Unknown Rx Ondansetron [Zofran Odt] 4 mg PO QID PRN #20 tab.rapdis 03/19/17 04/02/19 Unknown Rx Centrum Silver Tablet 1 tab PO QDAY 04/01/19 04/01/19 Unknown History Co Q10 100 mg PO QDAY 04/01/19 04/01/19 Unknown History Ezetimibe 10 mg PO QDAY 04/01/19 04/01/19 Unknown History Isosorbide Mononitrate 90 mg PO QDAY 04/01/19 04/01/19 Unknown History Pravastatin Sodium 80 mg PO QHS 04/01/19 04/01/19 Unknown History Preservision Areds 2 Softgel 2 tab PO QDAY 04/01/19 04/01/19 Unknown History Ranolazine ER 500 mg PO BID 04/01/19 04/01/19 Unknown History Telmisartan [Micardis] 80 mg PO QDAY 04/01/19 04/01/19 Unknown History Xarelto 15 mg PO DAILY 04/01/19 04/02/19 Unknown History amLODIPine 5 mg PO HS 04/01/19 04/01/19 Unknown History Pantoprazole [Protonix] 40 mg PO QDAY #30 tablet 04/02/19 Unknown Rx ED Physical Exam - General Limitations: No Limitations General appearance: alert, in no apparent distress - Head Head exam: Present: normocephalic, other (Hematoma to the right supraorbital region with surrounding bruising ecchymosis to the right and left periorbital regions) - Eye Eye exam: Present: normal appearance - ENT ENT exam: Present: mucous membranes moist, other (no TTP of c spine) - Neck Neck exam: Present: normal inspection - Respiratory Respiratory exam: Present: normal lung sounds bilaterally. Absent: respiratory distress - Cardiovascular Cardiovascular Exam: Present: regular rate, normal rhythm. Absent: systolic murmur, diastolic murmur, rubs, gallop - GI/Abdominal GI/Abdominal exam: Present: soft, normal bowel sounds. Absent: distended, tenderness - Rectal Rectal exam: Present: deferred - Extremities Exam Extremities exam: Present: normal inspection - Back Exam Back exam: Present: normal inspection - Neurological Exam Neurological exam: Present: alert, oriented X3 - Psychiatric Psychiatric exam: Present: normal affect, normal mood - Skin Skin exam: Present: warm, dry, intact, normal color. Absent: rash ED Course Vital Signs 08/30/20 10:13 Temperature 97.3 F L Pulse Rate 79 Respiratory 16 Rate Blood Pressure 141/79 O2 Sat by Pulse 97 Oximetry ED Medical Decision Making - Lab Data Result diagrams: 08/30/20 11:21 08/30/20 11:21 Lab Results 08/30/20 08/30/20 08/30/20 Range/Units 11:21 11:21 Unknown WBC 7.3 (4.5-11.0) K/mm3 RBC 3.56 L (3.65-5.03) M/mm3 Hgb 11.5 L (11.8-15.2) gm/dl Hct 33.8 L (35.5-45.6) % MCV 95 H (84-94) fl MCH 32 (28-32) pg MCHC 34 (32-34) % RDW 14.1 (13.2-15.2) % Plt Count 166 (140-440) K/mm3 Lymph % (Auto) 14.9 (13.4-35.0) % [place] % (Auto) 8.5 H (0.0-7.3) % Eos % (Auto) 3.3 (0.0-4.3) % Baso % (Auto) 0.5 (0.0-1.8) % Lymph # (Auto) 1.1 L (1.2-5.4) K/mm3 [place] # (Auto) 0.6 (0.0-0.8) K/mm3 Eos # (Auto) 0.2 (0.0-0.4) K/mm3 Baso # (Auto) 0.0 (0.0-0.1) K/mm3 Seg Neutrophils % 72.8 H (40.0-70.0) % Seg Neutrophils # 5.3 (1.8-7.7) K/mm3 Sodium 141 (137-145) mmol/L Potassium 4.4 (3.6-5.0) mmol/L Chloride 106.4 (98-107) mmol/L Carbon Dioxide 24 (22-30) mmol/L Anion Gap 15 mmol/L BUN 22 H (9-20) mg/dL Creatinine 1.0 (0.8-1.3) mg/dL Estimated GFR > 60 ml/min BUN/Creatinine Ratio 22 % Glucose 110 H (75-100) mg/dL Calcium 9.3 (8.4-10.2) mg/dL Total Bilirubin 0.50 (0.1-1.2) mg/dL AST 23 (5-40) units/L ALT 18 (7-56) units/L Alkaline Phosphatase 84 (35-129) units/L Total Protein 6.7 (6.3-8.2) g/dL Albumin 3.7 L (3.9-5) g/dL Albumin/Globulin Ratio 1.2 % Lipase 53 (13-60) units/L Urine Color Yellow (Yellow) Urine Turbidity Clear (Clear) Urine pH 6.0 (5.0-7.0) Ur Specific Hyrum 1.013 (1.003-1.030) Urine Protein <15 mg/dl (Negative) mg/dL Urine Glucose (UA) Neg (Negative) mg/dL Urine Ketones Neg (Negative) mg/dL Urine Blood Neg (Negative) Urine Nitrite Neg (Negative) Urine Bilirubin Neg (Negative) Urine Urobilinogen < 2.0 (<2.0) mg/dL Ur Leukocyte Esterase Neg (Negative) Urine WBC (Auto) < 1.0 (0.0-6.0) /HPF Urine RBC (Auto) 1.0 (0.0-6.0) /HPF U Epithel Cells (Auto) < 1.0 (0-13.0) /HPF Urine Mucus Few /HPF - Radiology Data Radiology results: report reviewed - Medical Decision Making Discussed results with patient Critical care attestation.: If time is entered above; I have spent that time in minutes in the direct care of this critically ill patient, excluding procedure time. ED Disposition Clinical Impression: Closed head injury, Ecchymosis, Facial bruising Disposition: TO HOME OR SELFCARE Is pt being admited?: No Condition: Stable Instructions: Head Injury, Adult, [id number], Contusion, Facial or Scalp Contusion Additional Instructions: return if worse Referrals: PRIMARY CAREMD [Primary Care Provider] - 3-5 Days GOPI PINEDA MD [Staff Physician] - 3-5 Days REGINALD ROBB MD [Staff Physician] - 3-5 Days Time of Disposition: 13:33
== END 2020-08-30 13:43 | disposition home or self-care (01) ==
LOC: ED 10:03
DX: S09.90XA Unspecified injury of head, initial encounter (principal); R58 Hemorrhage, not elsewhere classified; I10 Essential (primary) hypertension; Z86.73 Personal history of transient ischemic attack (TIA), and cerebral infarction without residual deficits; Z98.890 Other specified postprocedural states; Z79.899 Other long term (current) drug therapy; W22.8XXA Striking against or struck by other objects, initial encounter; Y93.89 Activity, other specified; Y92.89 Other specified places as the place of occurrence of the external cause; Y99.8 Other external cause status
CPT/HCPCS: 36415; 70450; 80053; 81001; 83690; 85025

== ENCOUNTER 2021-03-30 16:08 | Inpatient (IN) | payer MEDICARE, OTHER ==
--- NOTE | 2021-03-30 16:37 | Event Note ---
ED Screening Note ED Screening Note: Patient presents for shortness of breath that began 4 days ago He traveled to [place] last week and they drove and it took approximately 3 days He denies any chest pain, leg swelling, fever, nausea, vomiting, diarrhea Sent by his primary care doctor due to shortness of breath and tachycardia Patient is hypoxic and tachycardic This initial assessment/diagnostic orders/clinical plan/treatment(s) is/are subject to change based on patients health status, clinical progression and re- assessment by fellow clinical providers in the ED. Further treatment and workup at subsequent clinical providers discretion. Patient/guardian urged not to elope from the ED as their condition may be serious if not clinically assessed and managed. Initial orders include: Labs, EKG, x-ray Main ED for MD romeo Advised charge nurse that patient needs room [facility]
--- NOTE | 2021-03-30 17:32 | XRay Report ---
CHEST 2 VIEWS INDICATION / CLINICAL INFORMATION: SOB. COMPARISON: None available. FINDINGS: SUPPORT DEVICES: None. HEART / MEDIASTINUM: Enlarged LUNGS / PLEURA: Moderate pulmonary edema with small right and moderate size left pleural effusion No pneumothorax. ADDITIONAL FINDINGS: Ossific atherosclerosis aortic arch IMPRESSION: CHF with moderate pulmonary edema bilateral effusions Signer Name: Hiram Ralph MD Signed: 03/30/2021 5:27 PM Workstation Name: [email or web address]
--- NOTE | 2021-03-30 18:35 | Emergency Department Report ---
ED General Adult HPI - General Chief complaint: Arrhythmia/Palpitations Stated complaint: EGK NEEDED Time Seen by Provider: 03/30/21 16:35 Source: patient Mode of arrival: Ambulatory Limitations: No Limitations - History of Present Illness Initial comments: Patient presents to the emergency department the chief complaint of heart palpitations or shortness of breath that is been present for the last 4 to 5 days. Patient also states that he has noticed that his lower legs have been swelling. Patient denies a history of congestive heart failure or A. fib. Patient was sent by Dr. Ambrosio for evaluation. Patient denies chest pain but does endorse shortness of breath as mentioned above. Patient denies abdominal pain or headache. -: unknown Severity scale (0 -10): 0 Consistency: constant Improves with: none Worsens with: none Associated Symptoms: denies other symptoms Treatments Prior to Arrival: none - Related Data Home Medications Medication Instructions Recorded Confirmed Last Taken Centrum Silver Tablet 1 tab PO QDAY 04/01/19 04/01/19 Unknown Co Q10 100 mg PO QDAY 04/01/19 04/01/19 Unknown Ezetimibe 10 mg PO QDAY 04/01/19 04/01/19 Unknown Isosorbide Mononitrate 90 mg PO QDAY 04/01/19 04/01/19 Unknown Pravastatin Sodium 80 mg PO QHS 04/01/19 04/01/19 Unknown Preservision Areds 2 Softgel 2 tab PO QDAY 04/01/19 04/01/19 Unknown Ranolazine ER 500 mg PO BID 04/01/19 04/01/19 Unknown Telmisartan [Micardis] 80 mg PO QDAY 04/01/19 04/01/19 Unknown Xarelto 15 mg PO DAILY 04/01/19 04/02/19 Unknown amLODIPine 5 mg PO HS 04/01/19 04/01/19 Unknown Previous Rx's Medication Instructions Recorded Last Taken Type Dicyclomine [Bentyl] 10 mg PO QID PRN #20 capsule 03/19/17 Unknown Rx Ondansetron [Zofran Odt] 4 mg PO QID PRN #20 tab.rapdis 03/19/17 Unknown Rx Pantoprazole [Protonix] 40 mg PO QDAY #30 tablet 04/02/19 Unknown Rx Allergies Allergy/AdvReac Type Severity Reaction Status Date / Time No Known Allergies Allergy Unverified 07/14/16 10:38 ED Review of Systems ROS: Stated complaint: EGK NEEDED Other details as noted in HPI Comment: All other systems reviewed and negative Constitutional: denies: chills, fever Eyes: denies: eye pain, eye discharge, vision change ENT: denies: ear pain, throat pain Respiratory: shortness of breath. denies: cough, wheezing Cardiovascular: palpitations, dyspnea on exertion. denies: chest pain Endocrine: no symptoms reported Gastrointestinal: denies: abdominal pain, nausea, diarrhea Genitourinary: denies: urgency, dysuria Musculoskeletal: denies: back pain, joint swelling, arthralgia Skin: denies: rash, lesions Neurological: denies: headache, weakness, paresthesias Psychiatric: denies: anxiety, depression Hematological/Lymphatic: denies: easy bleeding, easy bruising ED Past Medical Hx - Past Medical History Hx Hypertension: Yes Hx CVA: Yes Additional medical history: elevated cholesterol, bilateral hearing aids, AFIB - Surgical History Hx Coronary Stent: Yes (6) Additional Surgical History: bilateral eye implants - Social History Smoking Status: Never Smoker Substance Use Type: None - Medications Home Medications: Home Medications Medication Instructions Recorded Confirmed Last Taken Type Dicyclomine [Bentyl] 10 mg PO QID PRN #20 capsule 03/19/17 04/02/19 Unknown Rx Ondansetron [Zofran Odt] 4 mg PO QID PRN #20 tab.rapdis 03/19/17 04/02/19 Unknown Rx Centrum Silver Tablet 1 tab PO QDAY 04/01/19 04/01/19 Unknown History Co Q10 100 mg PO QDAY 04/01/19 04/01/19 Unknown History Ezetimibe 10 mg PO QDAY 04/01/19 04/01/19 Unknown History Isosorbide Mononitrate 90 mg PO QDAY 04/01/19 04/01/19 Unknown History Pravastatin Sodium 80 mg PO QHS 04/01/19 04/01/19 Unknown History Preservision Areds 2 Softgel 2 tab PO QDAY 04/01/19 04/01/19 Unknown History Ranolazine ER 500 mg PO BID 04/01/19 04/01/19 Unknown History Telmisartan [Micardis] 80 mg PO QDAY 04/01/19 04/01/19 Unknown History Xarelto 15 mg PO DAILY 04/01/19 04/02/19 Unknown History amLODIPine 5 mg PO HS 04/01/19 04/01/19 Unknown History Pantoprazole [Protonix] 40 mg PO QDAY #30 tablet 04/02/19 Unknown Rx ED Physical Exam - General Limitations: No Limitations General appearance: alert, in no apparent distress - Head Head exam: Present: atraumatic, normocephalic - Eye Eye exam: Present: normal appearance, PERRL, EOMI - ENT ENT exam: Present: mucous membranes moist - Neck Neck exam: Present: normal inspection - Respiratory Respiratory exam: Present: rales. Absent: respiratory distress - Cardiovascular Cardiovascular Exam: Present: normal rhythm, tachycardia, irregular rhythm. Absent: systolic murmur, diastolic murmur, rubs, gallop - GI/Abdominal GI/Abdominal exam: Present: soft, normal bowel sounds. Absent: distended, tenderness - Rectal Rectal exam: Present: deferred - Extremities Exam Extremities exam: Present: other (Pitting edema bilaterally) - Back Exam Back exam: Present: normal inspection - Neurological Exam Neurological exam: Present: alert, oriented X3, CN II-XII intact. Absent: motor sensory deficit - Psychiatric Psychiatric exam: Present: normal affect, normal mood - Skin Skin exam: Present: warm, dry, intact, normal color. Absent: rash ED Course Vital Signs 03/30/21 03/30/21 03/30/21 16:36 17:14 17:15 Temperature 98.3 F Pulse Rate 152 H Respiratory 18 Rate Blood Pressure O2 Sat by Pulse 92 90 89 Oximetry 03/30/21 03/30/21 03/30/21 17:31 17:45 18:01 Temperature Pulse Rate 163 H 150 H 150 H Respiratory 32 H 28 H 30 H Rate Blood Pressure 67/45 132/83 O2 Sat by Pulse 92 95 92 Oximetry 03/30/21 03/30/21 03/30/21 18:15 18:31 19:20 Temperature Pulse Rate 150 H 144 H 146 H Respiratory 26 H 27 H Rate Blood Pressure 132/83 132/82 142/86 O2 Sat by Pulse 93 92 Oximetry ED Medical Decision Making - Lab Data Result diagrams: 03/30/21 17:58 03/30/21 17:58 Lab Results 03/30/21 03/30/21 03/30/21 Range/Units 17:58 17:58 17:58 WBC 6.9 (4.5-11.0) K/mm3 RBC 3.62 L (3.65-5.03) M/mm3 Hgb 12.0 (11.8-15.2) gm/dl Hct 35.8 (35.5-45.6) % MCV 99 H (84-94) fl MCH 33 H (28-32) pg MCHC 33 (32-34) % RDW 15.9 H (13.2-15.2) % Plt Count 204 (140-440) K/mm3 Lymph % (Auto) 11.8 L (13.4-35.0) % Harvey % (Auto) 10.4 H (0.0-7.3) % Eos % (Auto) 2.0 (0.0-4.3) % Baso % (Auto) 0.5 (0.0-1.8) % Lymph # (Auto) 0.8 L (1.2-5.4) K/mm3 Harvey # (Auto) 0.7 (0.0-0.8) K/mm3 Eos # (Auto) 0.1 (0.0-0.4) K/mm3 Baso # (Auto) 0.0 (0.0-0.1) K/mm3 Seg Neutrophils % 75.3 H (40.0-70.0) % Seg Neutrophils # 5.2 (1.8-7.7) K/mm3 PT 18.9 H (12.2-14.9) Sec. INR 1.52 H (0.87-1.13) APTT 39.6 H (24.2-36.6) Sec. Sodium 140 (137-145) mmol/L Potassium 4.5 (3.6-5.0) mmol/L Chloride 104.8 (98-107) mmol/L Carbon Dioxide 21 L (22-30) mmol/L Anion Gap 19 mmol/L BUN 22 H (9-20) mg/dL Creatinine 1.2 (0.8-1.3) mg/dL Estimated GFR 57 ml/min BUN/Creatinine Ratio 18 % Glucose 119 H (75-100) mg/dL Calcium 9.7 (8.4-10.2) mg/dL Magnesium 2.00 (1.7-2.3) mg/dL Total Bilirubin 0.60 (0.1-1.2) mg/dL AST 21 (5-40) units/L ALT 22 (7-56) units/L Alkaline Phosphatase 85 (35-129) units/L Total Creatine Kinase 34 L (55-170) units/L Troponin T 0.025 (0.00-0.029) ng/mL NT-Pro-B Natriuret Pep 1553 H (0-900) pg/mL Total Protein 6.6 (6.3-8.2) g/dL Albumin 3.9 (3.9-5) g/dL Albumin/Globulin Ratio 1.4 % TSH (0.270-4.200) mlU/mL 03/30/21 Range/Units 17:58 WBC (4.5-11.0) K/mm3 RBC (3.65-5.03) M/mm3 Hgb (11.8-15.2) gm/dl Hct (35.5-45.6) % MCV (84-94) fl MCH (28-32) pg MCHC (32-34) % RDW (13.2-15.2) % Plt Count (140-440) K/mm3 Lymph % (Auto) (13.4-35.0) % Harvey % (Auto) (0.0-7.3) % Eos % (Auto) (0.0-4.3) % Baso % (Auto) (0.0-1.8) % Lymph # (Auto) (1.2-5.4) K/mm3 Harvey # (Auto) (0.0-0.8) K/mm3 Eos # (Auto) (0.0-0.4) K/mm3 Baso # (Auto) (0.0-0.1) K/mm3 Seg Neutrophils % (40.0-70.0) % Seg Neutrophils # (1.8-7.7) K/mm3 PT (12.2-14.9) Sec. INR (0.87-1.13) APTT (24.2-36.6) Sec. Sodium (137-145) mmol/L Potassium (3.6-5.0) mmol/L Chloride (98-107) mmol/L Carbon Dioxide (22-30) mmol/L Anion Gap mmol/L BUN (9-20) mg/dL Creatinine (0.8-1.3) mg/dL Estimated GFR ml/min BUN/Creatinine Ratio % Glucose (75-100) mg/dL Calcium (8.4-10.2) mg/dL Magnesium (1.7-2.3) mg/dL Total Bilirubin (0.1-1.2) mg/dL AST (5-40) units/L ALT (7-56) units/L Alkaline Phosphatase (35-129) units/L Total Creatine Kinase (55-170) units/L Troponin T (0.00-0.029) ng/mL NT-Pro-B Natriuret Pep (0-900) pg/mL Total Protein (6.3-8.2) g/dL Albumin (3.9-5) g/dL Albumin/Globulin Ratio % TSH 2.830 (0.270-4.200) mlU/mL - EKG Data -: EKG Interpreted by Me Rate: tachycardia - EKG Data Interpretation: other (Irregularly irregular) - Radiology Data Radiology results: report reviewed - Medical Decision Making Patient given IV Lasix and IV Cardizem Critical Care Time: Yes Critical care time in (mins) excluding proc time.: 35 Critical care attestation.: If time is entered above; I have spent that time in minutes in the direct care of this critically ill patient, excluding procedure time. ED Disposition Clinical Impression: Afib, Congestive heart failure (CHF) Disposition: OP ADMIT IP TO THIS HOSP Is pt being admited?: Yes Does the pt Need Aspirin: Yes Condition: Fair Referrals: PRIMARY CARE, [Primary Care Provider] - 3-5 Days
[2021-03-30 18:37] LABS: Basophils % (Auto) 0.5 % (0.0-1.8); Eosinophils # (Auto) 0.1 K/mm3 (0.0-0.4); Hematocrit 35.8 % (35.5-45.6); Lymphocytes # (Auto) 0.8 K/mm3 (1.2-5.4); Lymphocytes % (Auto) 11.8 % (13.4-35.0); Mean Corpuscular HGB Conc 33 % (32-34); Mean Corpuscular Volume 99 fl (84-94); Monocytes # (Auto) 0.7 K/mm3 (0.0-0.8); Monocytes % (Auto) 10.4 % (0.0-7.3); Platelet Count 204 K/mm3 (140-440); Red Blood Count 3.62 M/mm3 (3.65-5.03); Red Cell Distribution Width 15.9 % (13.2-15.2)
[2021-03-30 18:44] LABS: Albumin 3.9 g/dL (3.9-5); Calcium 9.7 mg/dL (8.4-10.2)
[2021-03-30 18:46] LABS: INR 1.52 (0.87-1.13)
[2021-03-30 18:47] LABS: Partial Thromboplastin Time 39.6 Sec. (24.2-36.6)
[2021-03-30] MEDS ORDERED: dilTIAZem 25 MG/5 ML INJ IV ONE ×2 (18:47→18:48)
[2021-03-30] MEDS ORDERED: FUROSEMIDE 20 MG/2 ML INJ IV ONE (18:54)
[2021-03-30] MEDS ORDERED: ASPIRIN 81 MG TAB CHEW PO ONE (19:29)
--- NOTE | 2021-03-30 20:58 | History and Physical Report ---
History of Present Illness Date of examination: 03/30/21 Date of admission: 03/30/21 19:29 Chief complaint: a-fib History of present illness: This initial assessment/diagnostic orders/clinical plan/treatment(s) is/are subject to change based on patients health status, clinical progression and re- assessment by fellow clinical providers in the ED. Further treatment and workup at subsequent clinical providers discretion. Patient/guardian urged not to elope from the ED as their condition may be serious if not clinically assessed and managed. ED work-up shows WBC 7.3 hemoglobin 11.6, platelets 188, sodium 140, potassium 4.5, creatinine 1.2, BNP 1553. Reviewed the chest x-raypatient has CHF with moderate pulmonary edema and bilateral effusions. Patient seen in ED at bedside patient is alert oriented x3. Patient is on oxygen at 3 L patient reported extensive history of cardiac disease with several stent placements. Patient has a history of CHF, has bilateral lower leg edema and cardiac rhythm irregular. Patient is on A. fib we will resume home Xarelto and Cardizem. Cardiology is consultedwill follow with plan of care. Echo ordered. I reviewed patient medical record, medication administration record, and vital signs. Patient denies tobacco, alcohol, and illicit drug use. Past History Past Medical History: acute [place], atrial fib, CAD, heart failure, hypertension, hyperlipidemia, stroke Past Surgical History: appendectomy, hernia repair Social history: lives with family Family history: hypertension Medications and Allergies Allergies Allergy/AdvReac Type Severity Reaction Status Date / Time No Known Allergies Allergy Unverified 07/14/16 10:38 Home Medications Medication Instructions Recorded Confirmed Last Taken Type Dicyclomine [Bentyl] 10 mg PO QID PRN #20 capsule 03/19/17 04/02/19 Unknown Rx Ondansetron [Zofran Odt] 4 mg PO QID PRN #20 tab.rapdis 03/19/17 04/02/19 Unknown Rx Centrum Silver Tablet 1 tab PO QDAY 04/01/19 04/01/19 Unknown History Co Q10 100 mg PO QDAY 04/01/19 04/01/19 Unknown History Ezetimibe 10 mg PO QDAY 04/01/19 04/01/19 Unknown History Isosorbide Mononitrate 90 mg PO QDAY 04/01/19 04/01/19 Unknown History Pravastatin Sodium 80 mg PO QHS 04/01/19 04/01/19 Unknown History Preservision Areds 2 Softgel 2 tab PO QDAY 04/01/19 04/01/19 Unknown History Ranolazine ER 500 mg PO BID 04/01/19 04/01/19 Unknown History Telmisartan [Micardis] 80 mg PO QDAY 04/01/19 04/01/19 Unknown History Xarelto 15 mg PO DAILY 04/01/19 04/02/19 Unknown History amLODIPine 5 mg PO HS 04/01/19 04/01/19 Unknown History Pantoprazole [Protonix] 40 mg PO QDAY #30 tablet 04/02/19 Unknown Rx Review of Systems Constitutional: weakness Ears, nose, mouth and throat: no epistaxis, no bleeding gums Cardiovascular: palpitations, rapid/irregular heart beat, edema, shortness of breath, high blood pressure, leg edema Respiratory: cough Gastrointestinal: no melena Rectal: no hemorrhoids Musculoskeletal: muscle weakness Integumentary: no rash, no pruritis Neurological: no convulsions Psychiatric: no disorientation, no hallucinations Hematologic/Lymphatic: no easy bruising, no easy bleeding Allergic/Immunologic: no urticaria Exam - Constitutional Vitals: Temp Pulse Resp BP Pulse Ox 98.3 F 146 H 27 H 142/86 92 03/30/21 16:36 03/30/21 19:20 03/30/21 18:31 03/30/21 19:20 03/30/21 18:31 General appearance: Present: mild distress, well-nourished - EENT Eyes: Present: PERRL ENT: hearing intact, clear oral mucosa - Neck Neck: Present: supple, normal ROM - Respiratory Respiratory effort: normal Respiratory: bilateral: CTA - Cardiovascular Heart Sounds: Present: S1 & S2. Absent: rub, click - Extremities Extremities: pulses symmetrical, No edema Extremity abnormal: edema Peripheral Pulses: within normal limits - Abdominal General gastrointestinal: Present: soft, non-tender, non-distended, normal bowel sounds Male genitourinary: Present: normal - Integumentary Integumentary: Present: clear, warm, dry - Musculoskeletal Musculoskeletal: gait normal, strength equal bilaterally - Psychiatric Psychiatric: appropriate mood/affect, intact judgment & insight - Neurologic Neurologic: CNII-XII intact, moves all extremities - Allied Health Allied health notes reviewed: nursing HEART Score - HEART Score Troponin: Troponin T 0.025 ng/mL (0.00-0.029) 03/30/21 17:58 Results - Labs CBC & Chem 7: 03/31/21 06:00 03/30/21 17:58 Labs: Abnormal lab results 03/30/21 03/30/21 03/30/21 Range/Units 17:58 17:58 17:58 RBC 3.62 L (3.65-5.03) M/mm3 MCV 99 H (84-94) fl MCH 33 H (28-32) pg RDW 15.9 H (13.2-15.2) % Lymph % (Auto) 11.8 L (13.4-35.0) % [place] % (Auto) 10.4 H (0.0-7.3) % Lymph # (Auto) 0.8 L (1.2-5.4) K/mm3 Seg Neutrophils % 75.3 H (40.0-70.0) % PT 18.9 H (12.2-14.9) Sec. INR 1.52 H (0.87-1.13) APTT 39.6 H (24.2-36.6) Sec. Carbon Dioxide 21 L (22-30) mmol/L BUN 22 H (9-20) mg/dL Glucose 119 H (75-100) mg/dL Total Creatine Kinase 34 L (55-170) units/L NT-Pro-B Natriuret Pep 1553 H (0-900) pg/mL Assessment and Plan - Patient Problems (1) Congestive heart failure (CHF) Current Visit: Yes Status: Acute Plan to address problem: Continue cardioprotective measure Antiplatelets, statin, BB, diuretic, and oxygen supplement at 3 L Cardiology consult follow up with plan of care Echocardiogram (2) Atrial fibrillation Current Visit: Yes Status: Acute Qualifiers: Plan to address problem: Continue Xarelto and rate control [employer] is consulted (3) CAD (coronary artery disease) Current Visit: No Status: Acute Qualifiers: Coronary Disease-Associated Artery/Lesion type: unspecified vessel or lesion type [place] vs. transplanted heart: [place] heart Associated angina: without angina Qualified Code(s): I25.10 - Atherosclerotic heart disease of [place] coronary artery without angina pectoris Plan to address problem: Patient is status post multiple stent placement Continue statin and antiplatelet (4) DVT prophylaxis Current Visit: No Status: Acute Plan to address problem: Patient is on Eliquis
[2021-03-30] MEDS ORDERED: ALUM-MAG HYDROXIDE-SIMETHICONE 200-200-20MG/5ML ORAL LIQD 30 ML PO PRN (21:06)
[2021-03-30] MEDS ORDERED: SENNOSIDES 8.6 MG TAB PO PRN (21:06)
[2021-03-30] MEDS ORDERED: ACETAMINOPHEN 325 MG TAB PO PRN (21:06)
[2021-03-30] MEDS ORDERED: oxyCODONE /ACETAMINOPHEN 5-325MG TAB PO PRN (21:06)
[2021-03-30] MEDS ORDERED: MAGNESIUM HYDROXIDE (MOM) ORAL LIQD UDC PO PRN (21:06)
[2021-03-30] MEDS ORDERED: NALOXONE 0.4 MG/1 ML INJ IV PRN (21:06)
[2021-03-30] MEDS ORDERED: ONDANSETRON 4 MG/2 ML INJ IV PRN (21:06)
[2021-03-30] MEDS ORDERED: MORPHINE 2 MG/1 ML INJ IV PRN (21:06)
[2021-03-30] MEDS ORDERED: NITROGLYCERIN 0.4 MG TAB SUBL SL PRN (21:06)
[2021-03-30] MEDS ORDERED: ALPRAZolam 0.25 MG TAB PO PRN (21:06)
[2021-03-30] MEDS ORDERED: PANTOPRAZOLE 40 MG TAB PO SCH (22:00)
[2021-03-30] MEDS ORDERED: ENOXAPARIN 40 MG/0.4 ML INJ SUB-Q SCH (22:00)
[2021-03-30] MEDS ORDERED: FAMOTIDINE 20 MG/2 ML INJ IV SCH ×2 (22:00)
[2021-03-30] MEDS ORDERED: amLODIPine 5 MG TAB PO SCH (22:00)
[2021-03-30] MEDS ORDERED: PRAVASTATIN 80 MG TAB PO SCH (22:00)
[2021-03-30] MEDS ORDERED: dilTIAZem 25 MG/5 ML INJ ONE (22:09)
[2021-03-30 23:53] VITALS: BP 113/74
[2021-03-31 06:40] LABS: Basophils % (Auto) 0.4 % (0.0-1.8); Eosinophils % (Auto) 0.4 % (0.0-4.3); Hematocrit 34.2 % (35.5-45.6); Hemoglobin 11.6 gm/dl (11.8-15.2); Lymphocytes # (Auto) 0.8 K/mm3 (1.2-5.4); Lymphocytes % (Auto) 10.6 % (13.4-35.0); Mean Corpuscular HGB Conc 34 % (32-34); Mean Corpuscular Volume 98 fl (84-94); Monocytes # (Auto) 0.8 K/mm3 (0.0-0.8); Monocytes % (Auto) 10.4 % (0.0-7.3); Platelet Count 188 K/mm3 (140-440); Red Blood Count 3.48 M/mm3 (3.65-5.03); Red Cell Distribution Width 15.4 % (13.2-15.2)
[2021-03-31 06:48] LABS: Albumin 3.7 g/dL (3.9-5); Calcium 8.9 mg/dL (8.4-10.2)
[2021-03-31] MEDS ORDERED: dilTIAZem/D5W 100 MG/100 ML BAG IV SCH ×2 (07:00→12:00)
[2021-03-31] MEDS ORDERED: dilTIAZem 30 MG TAB PO SCH (07:00)
--- NOTE | 2021-03-31 08:01 | Progress Note ---
Assessment and Plan Assessment and plan: 1. Acute on chronic heart failure with preserved ejection fraction. Nocturnal dyspnea, shortness of breath 4 to 5 days progressively worsening, WALDRON, bilateral lower extremity edema BNP on admission 1553, troponin 0 0.025 03/30 CXR: CHF with moderate bilateral effusions. Official read per radiology report Echo ordered Cardiology consulted Lasix 40 mg IV twice daily Daily weights, I/O's -OP records obtained by cardiology, in chart. 2. Atrial fibrillation with rapid ventricular response has chronic hx of atrial fib. This admit, Ventricular rate in 150s -continuous tele Diltiazem gtt started Continue diltiazem 30 mg po QID Digoxin given by cardiology Continue home Xarelto Echo pending -cardiology following 3. Coronary artery disease - ASA, statin, ranolazine. 4. Hypertension -Continue medications as above. 5. prior history of [place] 6. prior history of stroke History Interval history: : This morning spoke with patient about prior history of CHF and A. fib. 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 Nova. He was at his primary care doctor's office yesterday who stated that he should present to our facility since patient had increased work of breathing, shortness of breath and peripheral edema. This morning patient states that he was feeling a little bit better. He was still on nasal cannula 2 L. He states that he has good social support with his partner who helps him with his medical needs. Discussed patient case with cardiology team who will evaluate patient. Patient's outpatient cardiology records were obtained they are in the chart. Ventricular rate was noted to be elevated this a.m. Cardiology will start patient on diltiazem drip as well as digoxin. Lasix 40 mg IV x1 was given. Hospitalist Physical - Physical exam Narrative exam: Physical Exam: GENERAL APPEARANCE: Well developed, well nourished, alert and cooperative, and no acute distress. on nasal cannula 2 L HEAD: normocephalic. EYES: PERRL, EOMI. Vision is grossly intact. EARS: No gross deformities NOSE: No nasal discharge. Nasal cannula in place THROAT: Oral cavity and pharynx normal. No inflammation, swelling, exudate, or lesions. Teeth and gingiva in good general condition. NECK: Neck supple, non-tender without lymphadenopathy, masses or thyromegaly. CARDIAC: Irregularly irregular, ventricular rate elevated. Bilateral pitting edema in lower extremities 2+. Extremities are warm and well perfused. Capillary refill is less than 2 seconds. No carotid bruits. LUNGS: Bilateral rales noted on auscultation ABDOMEN: Positive bowel sounds. Soft, nondistended, nontender. No guarding or rebound. No masses. MUSKULOSKELETAL: Adequately aligned spine. ROM intact spine and extremities. No joint erythema or tenderness. Normal muscular development. Normal gait. BACK: Examination of the spine reveals normal gait and posture EXTREMITIES: No significant deformity or joint abnormality. No edema. Peripheral pulses intact. No varicosities. NEUROLOGICAL: CN II-XII intact. Strength and sensation symmetric and intact throughout. Reflexes 2+ throughout. PSYCHIATRIC: The mental examination revealed the patient was oriented to person, place, and time. - Constitutional Vitals: Temp Pulse Resp BP Pulse Ox 97.7 F 130 H 18 113/74 88 03/30/21 23:28 03/31/21 01:00 03/30/21 23:28 03/30/21 23:28 03/31/21 01:22 General appearance: Present: mild distress, well-nourished HEART Score - HEART Score Troponin: Troponin T 0.025 ng/mL (0.00-0.029) 03/30/21 17:58 Results - Labs CBC & Chem 7: 03/31/21 06:00 03/31/21 06:00 Labs: Laboratory Last Values WBC 7.3 K/mm3 (4.5-11.0) 03/31/21 06:00 RBC 3.48 M/mm3 (3.65-5.03) L 03/31/21 06:00 Hgb 11.6 gm/dl (11.8-15.2) L 03/31/21 06:00 Hct 34.2 % (35.5-45.6) L 03/31/21 06:00 MCV 98 fl (84-94) H 03/31/21 06:00 MCH 33 pg (28-32) H 03/31/21 06:00 MCHC 34 % (32-34) 03/31/21 06:00 RDW 15.4 % (13.2-15.2) H 03/31/21 06:00 Plt Count 188 K/mm3 (140-440) 03/31/21 06:00 Lymph % (Auto) 10.6 % (13.4-35.0) L 03/31/21 06:00 Will % (Auto) 10.4 % (0.0-7.3) H 03/31/21 06:00 Eos % (Auto) 0.4 % (0.0-4.3) 03/31/21 06:00 Baso % (Auto) 0.4 % (0.0-1.8) 03/31/21 06:00 Lymph # (Auto) 0.8 K/mm3 (1.2-5.4) L 03/31/21 06:00 Will # (Auto) 0.8 K/mm3 (0.0-0.8) 03/31/21 06:00 Eos # (Auto) 0.0 K/mm3 (0.0-0.4) 03/31/21 06:00 Baso # (Auto) 0.0 K/mm3 (0.0-0.1) 03/31/21 06:00 Seg Neutrophils % 78.2 % (40.0-70.0) H 03/31/21 06:00 Seg Neutrophils # 5.7 K/mm3 (1.8-7.7) 03/31/21 06:00 PT 18.9 Sec. (12.2-14.9) H 03/30/21 17:58 INR 1.52 (0.87-1.13) H 03/30/21 17:58 APTT 39.6 Sec. (24.2-36.6) H 03/30/21 17:58 Sodium 139 mmol/L (137-145) 03/31/21 06:00 Potassium 4.4 mmol/L (3.6-5.0) 03/31/21 06:00 Chloride 106.4 mmol/L (98-107) 03/31/21 06:00 Carbon Dioxide 19 mmol/L (22-30) L 03/31/21 06:00 Anion Gap 18 mmol/L 03/31/21 06:00 BUN 24 mg/dL (9-20) H 03/31/21 06:00 Creatinine 1.2 mg/dL (0.8-1.3) 03/31/21 06:00 Estimated GFR 57 ml/min 03/31/21 06:00 BUN/Creatinine Ratio 20 % 03/31/21 06:00 Glucose 122 mg/dL (75-100) H 03/31/21 06:00 Calcium 8.9 mg/dL (8.4-10.2) 03/31/21 06:00 Magnesium 1.80 mg/dL (1.7-2.3) 03/30/21 23:14 Total Bilirubin 0.50 mg/dL (0.1-1.2) 03/31/21 06:00 AST 20 units/L (5-40) 03/31/21 06:00 ALT 21 units/L (7-56) 03/31/21 06:00 Alkaline Phosphatase 85 units/L (35-129) 03/31/21 06:00 Total Creatine Kinase 34 units/L (55-170) L 03/30/21 17:58 Troponin T 0.025 ng/mL (0.00-0.029) 03/30/21 17:58 NT-Pro-B Natriuret Pep 1553 pg/mL (0-900) H 03/30/21 17:58 Total Protein 6.5 g/dL (6.3-8.2) 03/31/21 06:00 Albumin 3.7 g/dL (3.9-5) L 03/31/21 06:00 Albumin/Globulin Ratio 1.3 % 03/31/21 06:00 TSH 2.830 mlU/mL (0.270-4.200) 03/30/21 17:58 Lopes/IV: Voiding Method Urinal Active Medications - Current Medications Current Medications: Generic Name Dose Route Start Last Admin Trade Name Freq PRN Reason Stop Dose Admin Acetaminophen 650 mg 03/30/21 21:06 Acetaminophen 325 Mg Tab PO Q4H PRN Pain MILD(1-3)/Fever >100.5/CASEY Al Hydrox/Mg Hydrox/Simethicone 30 ml 03/30/21 21:06 Alum-Mag Hydroxide-Simethicone [phone]/5ml Oral Liqd 30 Ml PO Q4H PRN Indigestion Alprazolam 0.125 mg 03/30/21 21:06 Alprazolam 0.25 Mg Tab PO Q8H PRN Agitation Amlodipine Besylate 5 mg 03/30/21 22:00 03/30/21 23:15 Amlodipine 5 Mg Tab PO 5 mg HS SHANI Administration Diltiazem HCl 30 mg 03/31/21 07:00 Diltiazem 30 Mg Tab PO Q6HR [facility] Ezetimibe 10 mg 03/31/21 10:00 Ezetimibe 10 Mg Tab PO QDAY [facility] Famotidine 20 mg 03/30/21 22:00 03/30/21 23:16 Famotidine 20 Mg/2 Ml Inj IV 20 mg BID SHANI Administration Furosemide 20 mg 03/31/21 10:00 Furosemide 20 Mg/2 Ml Inj IV 0600,1800 [facility] Diltiazem HCl 100 mg in 100 mls @ 5 mls/hr 03/31/21 07:00 Cardizem/D5w 100mg/100ml IV TITR [facility] Protocol 5 MG/HR Isosorbide Mononitrate 30 mg 03/31/21 10:00 Isosorbide Mononitrate Er 30 Mg Tab PO QDAY [facility] Losartan Potassium 50 mg 03/31/21 10:00 Losartan 50 Mg Tab PO QDAY [facility] Magnesium Hydroxide 30 ml 03/30/21 21:06 Magnesium Hydroxide (Mom) Oral Liqd Udc PO Q4H PRN Constipation Naloxone HCl 0.1 mg 03/30/21 21:06 Naloxone 0.4 Mg/1 Ml Inj IV Q2MIN PRN Res Rate </= 8 or 02 SAT < 92% Nitroglycerin 0.4 mg 03/30/21 21:06 Nitroglycerin 0.4 Mg Tab Subl SL .Q5MIN PRN Chest Pain Ondansetron HCl 4 mg 03/30/21 21:06 Ondansetron 4 Mg/2 Ml Inj IV Q8H PRN Nausea And Vomiting Oxycodone/Acetaminophen 1 tab 03/30/21 21:06 Oxycodone /Acetaminophen 5-325mg Tab PO Q6H PRN Pain, Moderate (4-6) Pravastatin Sodium 80 mg 03/30/21 22:00 03/30/21 23:15 Pravastatin 80 Mg Tab PO 80 mg QHS [facility] Administration Ranolazine 500 mg 03/31/21 10:00 Ranolazine Er 500 Mg Tab 12hr PO BID [facility] Rivaroxaban 15 mg 03/31/21 10:00 Rivaroxaban 15 Mg Tab PO DAILY [facility] Senna 8.6 mg 03/30/21 21:06 Sennosides 8.6 Mg Tab PO Q12HR PRN Constipation Sodium Chloride 10 ml 03/30/21 21:06 03/30/21 23:16 Sodium Chloride 0.9% 10 Ml Flush Syringe IV 10 ml PRN PRN Administration LINE FLUSH
[2021-03-31] MEDS ORDERED: FUROSEMIDE 20 MG/2 ML INJ IV SCH (10:00)
[2021-03-31] MEDS ORDERED: LOSARTAN 50 MG TAB PO SCH (10:00)
[2021-03-31] MEDS ORDERED: RANOLAZINE ER 500 MG TAB 12HR PO SCH (10:00)
[2021-03-31] MEDS ORDERED: EZETIMIBE 10 MG TAB PO SCH (10:00)
[2021-03-31] MEDS ORDERED: RIVAROXABAN 15 MG TAB PO SCH (10:00)
--- NOTE | 2021-03-31 10:26 | Electrocardiograph Report ---
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
[2021-03-31] MEDS ORDERED: MORPHINE 2 MG/1 ML INJ IV SCH (10:30)
[2021-03-31] MEDS ORDERED: FUROSEMIDE 40 MG/4 ML INJ IV SCH ×2 (10:30→18:00)
--- NOTE | 2021-03-31 10:32 | Consultation ---
History of Present Illness Consult date: 03/31/21 Consult reason: congestive heart failure History of present illness: 89-year old male that has a history of coronary artery disease with inferior UT and chronic atrial fibrillation for which he takes Xarelto for oral anticoagulation. He is followed routinely by his safety physician Dr Nova. His latest cardiac workup with an echocardiogram done 6 months ago reports a normal left ventricular systolic function, ejection fraction 55-65%. There was mild to moderate mitral regurgitation and mild to moderate aortic stenosis. Yesterday, he went to his the PCP for a routine visit. At that time he was noted shortness of breath, referred to the emergency department for further evaluation. On presentation, patient reports 5 days of shortness of breath, and lower extremity edema. Denies chest pain and denies palpitations. Chest x-ray reports evidence of interstitial edema with moderate left pleural effusion. An ECG done showed atrial fibrillation with a rapid ventricular response. On today's assessment, patient appears mildly distress. He is short of breath when trying to complete sentences and has active wheezing. Telemetry monitoring shows atrial fibrillation with an uncontrolled ventricular rate. Past History Past Medical History: acute UT, atrial fib, CAD, hypertension, hyperlipidemia, stroke Past Surgical History: appendectomy, hernia repair Social history: lives with family. denies: smoking Family history: hypertension Medications and Allergies Allergies Allergy/AdvReac Type Severity Reaction Status Date / Time No Known Allergies Allergy Unverified 07/14/16 10:38 Home Medications Medication Instructions Recorded Confirmed Last Taken Type Dicyclomine [Bentyl] 10 mg PO QID PRN #20 capsule 03/19/17 04/02/19 Unknown Rx Ondansetron [Zofran Odt] 4 mg PO QID PRN #20 tab.rapdis 03/19/17 04/02/19 Unknown Rx Centrum Silver Tablet 1 tab PO QDAY 04/01/19 04/01/19 Unknown History Co Q10 100 mg PO QDAY 04/01/19 04/01/19 Unknown History Ezetimibe 10 mg PO QDAY 04/01/19 04/01/19 Unknown History Isosorbide Mononitrate 90 mg PO QDAY 04/01/19 04/01/19 Unknown History Pravastatin Sodium 80 mg PO QHS 04/01/19 04/01/19 Unknown History Preservision Areds 2 Softgel 2 tab PO QDAY 04/01/19 04/01/19 Unknown History Ranolazine ER 500 mg PO BID 04/01/19 04/01/19 Unknown History Telmisartan [Micardis] 80 mg PO QDAY 04/01/19 04/01/19 Unknown History Xarelto 15 mg PO DAILY 04/01/19 04/02/19 Unknown History amLODIPine 5 mg PO HS 04/01/19 04/01/19 Unknown History Pantoprazole [Protonix] 40 mg PO QDAY #30 tablet 04/02/19 Unknown Rx Active Meds: Active Medications Acetaminophen (Acetaminophen 325 Mg Tab) 650 mg PO Q4H PRN PRN Reason: Pain MILD(1-3)/Fever >100.5/CASEY Al Hydrox/Mg Hydrox/Simethicone (Alum-Mag Hydroxide-Simethicone [phone]/5ml Oral Liqd 30 Ml) 30 ml PO Q4H PRN PRN Reason: Indigestion Alprazolam (Alprazolam 0.25 Mg Tab) 0.125 mg PO Q8H PRN PRN Reason: Agitation Amlodipine Besylate (Amlodipine 5 Mg Tab) [address] [facility] Last Admin: 03/30/21 23:15 Dose: 5 mg Documented by: Diltiazem HCl (Diltiazem 30 Mg Tab) 30 mg PO Q6HR ON LICENSE OF [facility] Last Admin: 03/31/21 10:21 Dose: 30 mg Documented by: Ezetimibe (Ezetimibe 10 Mg Tab) 10 mg PO QDAY ON LICENSE OF [facility] Last Admin: 03/31/21 10:21 Dose: 10 mg Documented by: Furosemide (Furosemide 20 Mg/2 Ml Inj) 20 mg IV 0600,1800 ON LICENSE OF [facility] Last Admin: 03/31/21 10:22 Dose: Not Given Documented by: Furosemide (Furosemide 40 Mg/4 Ml Inj) 40 mg IV ONCE SHANI Stop: 03/31/21 17:00 Last Admin: 03/31/21 10:21 Dose: 40 mg Documented by: Diltiazem HCl (Cardizem/D5w 100mg/100ml) 100 mg in 100 mls @ 5 mls/hr IV TITR SHANI; Protocol Isosorbide Mononitrate (Isosorbide Mononitrate Er 30 Mg Tab) 30 mg PO QDAY ON LICENSE OF [facility] Last Admin: 03/31/21 10:21 Dose: 30 mg Documented by: Losartan Potassium (Losartan 50 Mg Tab) 50 mg PO QDAY ON LICENSE OF [facility] Last Admin: 03/31/21 10:21 Dose: 50 mg Documented by: Magnesium Hydroxide (Magnesium Hydroxide (Mom) Oral Liqd Udc) 30 ml PO Q4H PRN PRN Reason: Constipation Morphine Sulfate (Morphine 2 Mg/1 Ml Inj) 2 mg IV ONCE ON LICENSE OF [facility] Stop: 03/31/21 14:00 Last Admin: 03/31/21 10:21 Dose: 2 mg Documented by: Naloxone HCl (Naloxone 0.4 Mg/1 Ml Inj) 0.1 mg IV Q2MIN PRN PRN Reason: Res Rate </= 8 or 02 SAT < 92% Nitroglycerin (Nitroglycerin 0.4 Mg Tab Subl) 0.4 mg SL .Q5MIN PRN PRN Reason: Chest Pain Ondansetron HCl (Ondansetron 4 Mg/2 Ml Inj) 4 mg IV Q8H PRN PRN Reason: Nausea And Vomiting Oxycodone/Acetaminophen (Oxycodone /Acetaminophen 5-325mg Tab) 1 tab PO Q6H PRN PRN Reason: Pain, Moderate (4-6) Pravastatin Sodium (Pravastatin 80 Mg Tab) 80 mg PO QHS ON LICENSE OF [facility] Last Admin: 03/30/21 23:15 Dose: 80 mg Documented by: Ranolazine (Ranolazine Er 500 Mg Tab 12hr) 500 mg PO BID ON LICENSE OF [facility] Last Admin: 03/31/21 10:21 Dose: 500 mg Documented by: Rivaroxaban (Rivaroxaban 15 Mg Tab) 15 mg PO DAILY ON LICENSE OF [facility] Last Admin: 03/31/21 10:21 Dose: 15 mg Documented by: Senna (Sennosides 8.6 Mg Tab) 8.6 mg PO Q12HR PRN PRN Reason: Constipation Sodium Chloride (Sodium Chloride 0.9% 10 Ml Flush Syringe) 10 ml IV PRN PRN PRN Reason: LINE FLUSH Last Admin: 03/30/21 23:16 Dose: 10 ml Documented by: Review of Systems Cardiovascular: edema, shortness of breath Physical Examination Vital Signs Temp Pulse Resp Pulse Ox 98.3 F 152 H 18 92 03/30/21 16:36 03/30/21 16:36 03/30/21 16:36 03/30/21 16:36 General appearance: mild distress HEENT: Positive: PERRL Neck: Positive: trachea midline Cardiac: Positive: irregularly irregular Lungs: Positive: Decreased Breath Sounds, Wheezes Results 03/31/21 06:00 03/31/21 06:00 Cardiac Enzymes 03/30/21 03/31/21 Range/Units 17:58 06:00 AST 21 20 (5-40) units/L Coagulation 03/30/21 Range/Units 17:58 PT 18.9 H (12.2-14.9) Sec. INR 1.52 H (0.87-1.13) APTT 39.6 H (24.2-36.6) Sec. CBC 03/30/21 03/31/21 Range/Units 17:58 06:00 WBC 6.9 7.3 (4.5-11.0) K/mm3 RBC 3.62 L 3.48 L (3.65-5.03) M/mm3 Hgb 12.0 11.6 L (11.8-15.2) gm/dl Hct 35.8 34.2 L (35.5-45.6) % Plt Count 204 188 (140-440) K/mm3 Lymph # (Auto) 0.8 L 0.8 L (1.2-5.4) K/mm3 Richardson # (Auto) 0.7 0.8 (0.0-0.8) K/mm3 Eos # (Auto) 0.1 0.0 (0.0-0.4) K/mm3 Baso # (Auto) 0.0 0.0 (0.0-0.1) K/mm3 Comprehensive Metabolic Panel 03/30/21 03/31/21 Range/Units 17:58 06:00 Sodium 140 139 (137-145) mmol/L Potassium 4.5 4.4 (3.6-5.0) mmol/L Chloride 104.8 106.4 (98-107) mmol/L Carbon Dioxide 21 L 19 L (22-30) mmol/L BUN 22 H 24 H (9-20) mg/dL Creatinine 1.2 1.2 (0.8-1.3) mg/dL Glucose 119 H 122 H (75-100) mg/dL Calcium 9.7 8.9 (8.4-10.2) mg/dL AST 21 20 (5-40) units/L ALT 22 21 (7-56) units/L Alkaline Phosphatase 85 85 (35-129) units/L Total Protein 6.6 6.5 (6.3-8.2) g/dL Albumin 3.9 3.7 L (3.9-5) g/dL Assessment and Plan Heart failure with a preserved ejection fraction Chronic atrial fibrillation on Xarelto for oral anticoagulation rate controlled Hx of CAD Hypertension Patient noted in mild distress. Will order stat IV morphine 2 mg and IV lasix 40 mg now. An echocardiogram has been ordered for LVEF assessment. Continue diuretics. Will use intravenous Diltiazem and Digoxin for optimal rate control of chronic atrial fibrillation.
[2021-03-31] MEDS ORDERED: DIGOXIN 0.5 MG/2 ML INJ IV SCH (12:00)
[2021-03-31] MEDS ORDERED: dilTIAZem 25 MG/5 ML INJ IV ONE (12:30)
[2021-04-01] MEDS ORDERED: DIGOXIN 0.5 MG/2 ML INJ IV SCH (10:00)
[2021-04-01] MEDS ORDERED: ASPIRIN 81 MG TAB CHEW PO SCH (10:00)
[2021-04-01] MEDS ORDERED: FUROSEMIDE 40 MG/4 ML INJ IV SCH (10:00)
--- NOTE | 2021-04-01 14:43 | Discharge Summary ---
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 Was evaluated in the emergency room and referred for admission. ECG shows rapid ventricular rates to his chronic atrial fibrillation. On bedrest this morning, the patient is dyspneic with diffuse rhonchi, consistent with heart failure exacerbation. ECG in the emergency room did show bilateral small pleural effusion, and mild interstitial edema. The patient's echocardiogram done today shows an end-stage left ventricular systolic dysfunction, ejection fraction estimated at 10 to 15%. In addition, there is severely calcified aortic valve with markedly restricted opening. A low mean gradient of 16 to 17 mmHg across the aortic valve is likely an underestimation due to the severe left ventricular dysfunction and low cardiac output. Recommendations: In addition to medical therapy with judicious use of diuretics, the patient will need aortic valve replacement. Due to his advanced age, frailty and multiple comorbidities, he will likely only be a candidate for transcutaneous AVR. Patient was Patient was transferred out to [facility] for TAVR. Cardiology service initiated transfer Disposition: [id number] Final Discharge Diagnosis (Prints w/discharge instructions): Congestive heart failure, aortic valve stenosis Time spent for discharge: 35 - Discharge Diagnoses (1) Aortic valve stenosis Status: Acute (2) Atrial fibrillation Status: Acute Qualifiers: (3) Congestive heart failure (CHF) Status: Acute Core Measure Documentation - Palliative Care Palliative Care/ Comfort Measures: Not Applicable - Core Measures Any of the following diagnoses?: heart failure - Heart Failure Discharge Requirements BASHIR/ARB for LVSD if EF <40%: No Reason for no BASHIR/ARB: Medical contraindication Beta marissa at discharge: No Reason for no beta marissa on DC: Medical contraindication Exam - Physical Exam Narrative exam: Physical Exam: GENERAL APPEARANCE: Well developed, well nourished, alert and cooperative, and no acute distress. on nasal cannula 2 L HEAD: normocephalic. EYES: PERRL, EOMI. Vision is grossly intact. EARS: No gross deformities NOSE: No nasal discharge. Nasal cannula in place THROAT: Oral cavity and pharynx normal. No inflammation, swelling, exudate, or lesions. Teeth and gingiva in good general condition. NECK: Neck supple, non-tender without lymphadenopathy, masses or thyromegaly. CARDIAC: Irregularly irregular, ventricular rate elevated. Bilateral pitting edema in lower extremities 2+. Extremities are warm and well perfused. Capillary refill is less than 2 seconds. No carotid bruits. LUNGS: Bilateral rales noted on auscultation ABDOMEN: Positive bowel sounds. Soft, nondistended, nontender. No guarding or rebound. No masses. MUSKULOSKELETAL: Adequately aligned spine. ROM intact spine and extremities. No joint erythema or tenderness. Normal muscular development. Normal gait. BACK: Examination of the spine reveals normal gait and posture EXTREMITIES: No significant deformity or joint abnormality. No edema. Peripheral pulses intact. No varicosities. NEUROLOGICAL: CN II-XII intact. Strength and sensation symmetric and intact throughout. Reflexes 2+ throughout. PSYCHIATRIC: The mental examination revealed the patient was oriented to person, place, and time. - Constitutional Vitals: Temp Pulse Resp BP Pulse Ox 97.7 F 154 H 18 113/74 93 03/30/21 23:28 03/31/21 12:56 03/30/21 23:28 03/30/21 23:28 03/31/21 13:28 Plan Activity: no restrictions Weight Bearing Status: Weight Bear as Tolerated Diet: regular Follow up with: PRIMARY MD HYUN [Primary Care Provider] - 3-5 Days
== END 2021-03-31 17:27 | disposition short-term general hospital (02) | DRG 306 ==
LOC: ED 16:08 → 4A 19:29
PROVIDERS: ADMIT Internal Medicine; ATTEND Internal Medicine
DX: I35.0 Nonrheumatic aortic (valve) stenosis (principal); I50.33 Acute on chronic diastolic (congestive) heart failure; I48.20 Chronic atrial fibrillation, unspecified; I11.0 Hypertensive heart disease with heart failure; I25.10 Atherosclerotic heart disease of native coronary artery without angina pectoris; E78.5 Hyperlipidemia, unspecified; E78.00 Pure hypercholesterolemia, unspecified; Z96.89 Presence of other specified functional implants; Z95.5 Presence of coronary angioplasty implant and graft; Z79.899 Other long term (current) drug therapy; Z90.49 Acquired absence of other specified parts of digestive tract; Z82.49 Family history of ischemic heart disease and other diseases of the circulatory system; I25.2 Old myocardial infarction
CPT/HCPCS: 36415; 71046; 80053; 82550; 83036; 83735; 83880; 84443; 84484; 85025; 85610; 85730; 93005; 93306; 96374; 96375; G0378; A9270-GY; J1160; J1650; J1940; J2270